=== PATIENT | male | born 1930 | race Caucasian/White ===

== ENCOUNTER 2017-11-02 16:07 | Emergency (ER) | payer OTHER ==
--- NOTE | 2017-11-02 18:10 | ER ---
Nurse's Notes [facility] Name: Cristi Kirk Sr Age: 87 yrs Sex: Male : 1930 Arrival Date: 11/02/2017 Time: 16:08 Bed 27 Private MD: Juan Pablo Hardy E Diagnosis: Unspecified urinary incontinence Presentation: 11/02 16:20 Presenting complaint: Child states: "He is having trouble controlling his bladder for a lk1 month or two now. He's been in and out of here with it and I want to know why.". Presenting complaint:. Transition of care: patient was not received from another setting of care. Onset of symptoms was September 02, 2017. Risk Assessment: Do you want to hurt yourself or someone else? Patient reports no desire to harm self or others. Initial Sepsis Screen: Does the patient meet any 2 criteria? No. Patient's initial sepsis screen is negative. Does the patient have a suspected source of infection? No. Patient's initial sepsis screen is negative. Care prior to arrival: None. 16:20 Method Of Arrival: Wheelchair lk1 16:20 Acuity: RAKESH 4 lk1 Historical: - Allergies: 16:22 No Known Allergies; lk1 - PMHx: 16:22 None; lk1 - PSHx: 16:22 Appendectomy; lk1 - Immunization history:: Adult Immunizations up to date. - Social history:: Smoking status: Patient/guardian denies using tobacco. - Ebola Screening: : No symptoms or risks identified at this time. Screenin:02 Abuse screen: Denies threats or abuse. Nutritional screening: No deficits noted. mb3 Tuberculosis screening: No symptoms or risk factors identified. Fall Risk Fall in past 12 months (25 points). Secondary diagnosis (15 points) No IV (0 pts). Ambulatory Aid- Crutches/Cane/Walker (15 pts). Gait- Impaired (20 pts.). Mental Status- Oriented to own ability (0 pts). Total Stokes Fall Scale indicates High Risk Score (45 or more points). Fall prevention measures have been instituted. Side Rails Up X 2 Placed Close to Nursing Station Frequent Obs/Assessments Occuring Family Present and informed to notify staff if the need to leave the bedside As available patient and family educated on Fall Prevention Program and Strategies. Assessment: 18:01 General: Appears in no apparent distress. comfortable, unkempt, Behavior is calm, mb3 cooperative, appropriate for age. Pain: Denies pain. Neuro: Level of Consciousness is awake, alert, obeys commands. Cardiovascular: No deficits noted. Respiratory: No deficits noted. GI: No deficits noted. : Urine is clear. 18:03 Reassessment: bladder scan done after pt urinated, no urine detected. mb3 Vital Signs: 16:22 BP 111 / 63; Pulse 79; Resp 16; Temp 98.3(TE); Pulse Ox 95% on R/A; Weight 75.3 kg (R); lk1 Height 5 ft. 9 in. (175.26 cm) (R); Pain 0/10; 18:08 BP 114 / 53; Pulse 70; Resp 18; Pulse Ox 98% on R/A; mb3 16:22 Body Mass Index 24.51 (75.30 kg, 175.26 cm) lk1 ED Course: 16:08 Patient arrived in ED. as 16:08 Juan Pablo Hardy MD is Private Physician. as 16:21 Triage completed. lk1 16:24 Arm band placed on right wrist. lk1 16:26 Amol Nye MD is Attending Physician. 16:28 Terry Dickinson, ANTHONY is Primary Nurse. mb3 18:03 Patient has correct armband on for positive identification. Call light in reach. Side mb3 rails up X 1. 18:03 Urine collected: clean catch specimen, clear, opal colored. tt1 18:09 Clifford Reese MD is Referral Physician. 18:17 No provider procedures requiring assistance completed. Patient did not have IV access mb3 during this emergency room visit. Administered Medications: No medications were administered Outcome: 18:10 Discharge ordered by . 18:17 Discharged to home via wheelchair, with family. mb3 18:17 Condition: stable 18:17 Discharge instructions given to patient, family, Instructed on discharge instructions, follow up and referral plans. Demonstrated understanding of instructions, follow-up care. 18:22 Patient left the ED. mb3 Signatures: Renee Castaneda Tracy tt1 Brittany Coffey RN RN lk Amol Nye MD MD Terry Dickinson RN RN mb3
--- NOTE | 2017-11-02 18:10 | EDPHYS ---
Physician Documentation [facility] Name: Cristi Kirk Sr Age: 87 yrs Sex: Male : 1930 Arrival Date: 11/02/2017 Time: 16:08 Bed 27 Private MD: Juan Pablo Hardy E ED Physician Amol Nye HPI: 11/02 18:06 This 87 yrs old Male presents to ER via Wheelchair with complaints of Urinary gs Incontinence,. 18:07 The patient presents with urinary symptoms, urinary frequency, incontinence of urine. gs Onset: The symptoms/episode began/occurred 2 week(s) ago, and became persistent. Modifying factors: The symptoms are alleviated by nothing, the symptoms are aggravated by nothing. Severity of symptoms: At their worst the symptoms were moderate, in the emergency department the symptoms are unchanged. Unable to obtain HPI due to baseline dementia. Historical: - Allergies: 16:22 No Known Allergies; lk1 - PMHx: 16:22 None; lk1 - PSHx: 16:22 Appendectomy; lk1 - Immunization history:: Adult Immunizations up to date. - Social history:: Smoking status: Patient/guardian denies using tobacco. - Ebola Screening: : No symptoms or risks identified at this time. ROS: 18:07 All other systems are negative. gs Exam: 18:07 ENT: Nares patent. No nasal discharge, no septal abnormalities noted. Tympanic gs membranes are normal and external auditory canals are clear. Oropharynx with no redness, swelling, or masses, exudates, or evidence of obstruction, uvula midline. Mucous membranes moist. Neck: Trachea midline, no thyromegaly or masses palpated, and no cervical lymphadenopathy. Supple, full range of motion without nuchal rigidity, or vertebral point tenderness. No Meningismus. Cardiovascular: Regular rate and rhythm with a normal S1 and S2. No gallops, murmurs, or rubs. Normal PMI, no JVD. No pulse deficits. Respiratory: Lungs have equal breath sounds bilaterally, clear to auscultation and percussion. No rales, rhonchi or wheezes noted. No increased work of breathing, no retractions or nasal flaring. Abdomen/GI: Soft, non-tender, with normal bowel sounds. No distension or tympany. No guarding or rebound. No evidence of tenderness throughout. Back: No spinal tenderness. No costovertebral tenderness. Full range of motion. Skin: Warm, dry with normal turgor. Normal color with no rashes, no lesions, and no evidence of cellulitis. MS/ Extremity: Pulses equal, no cyanosis. Neurovascular intact. Full, normal range of motion. 18:07 Constitutional: The patient appears alert, awake. 18:07 Neuro: Exam negative for acute changes, Motor: moves all fours, Sensation: no obvious gross deficits. Vital Signs: 16:22 BP 111 / 63; Pulse 79; Resp 16; Temp 98.3(TE); Pulse Ox 95% on R/A; Weight 75.3 kg (R); lk1 Height 5 ft. 9 in. (175.26 cm) (R); Pain 0/10; 18:08 BP 114 / 53; Pulse 70; Resp 18; Pulse Ox 98% on R/A; mb3 16:22 Body Mass Index 24.51 (75.30 kg, 175.26 cm) lk1 MDM: 16:35 Patient medically screened. 18:07 Differential diagnosis: UTI, urinary retention. Data reviewed: vital signs, nurses notes. Response to treatment: There is no appreciated change of the patient's symptoms at this time, and as a result, I will discharge patient. 11/02 16:36 Order name: Urine Microscopic Only 11/02 18:03 Order name: Urine Dipstick--Ancillary (enter results) em1 11/02 16:36 Order name: Urine Dipstick-Ancillary (obtain specimen); Complete Time: 18:01 11/02 16:36 Order name: Misc. Order: post void bladder scan 11/02 18:04 Order name: Urine Dipstick-Ancillary EDMS Administered Medications: No medications were administered Disposition: 11/02/17 18:10 Discharged to Home. Impression: Unspecified urinary incontinence. - Condition is Stable. - Discharge Instructions: Urinary Incontinence. - Medication Reconciliation Form, Thank You Letter, Antibiotic Education, Prescription Opioid Use form. - Follow up: Clifford Reese MD; When: 2 - 3 days; Reason: Re-evaluation by your physician. Signatures: Dispatcher [employer] EDMS Brittany Coffey RN RN lk1 Amol Nye MD MD Terry Dickinson RN RN mb3 Corrections: (The following items were deleted from the chart) 18:22 18:10 11/02/2017 18:10 Discharged to Home. Impression: Unspecified urinary mb3 incontinence. Condition is Stable. Forms are Medication Reconciliation Form, Thank You Letter, Antibiotic Education, Prescription Opioid Use. Follow up: Clifford Reese; When: 2 - 3 days; Reason: Re-evaluation by your physician. gs
[2017-11-02 18:17] LABS: Urine Bacteria <20 /HPF (NONE SEEN); Urine Culture Reflex Order NOT NEEDED; Urine Mucus 1+ /HPF (NONE SEEN); Urine RBC <5 /HPF (NONE SEEN)
[2017-11-02 18:25] VITALS: TEMP 98.3
[2017-11-02 18:26] VITALS: BP 114/53; O2SAT 98
[2017-11-02 20:05] LABS: Urine Blood TRACE (NEG); Urine Glucose NEGATIVE (NEG); Urine Protein NEGATIVE (NEG); Urine Specific Gravity 1.025 (1.005-1.030); Urine pH 5.5 (5.0-7.0)
== END 2017-11-02 18:22 | disposition home or self-care (01) ==
LOC: ER 16:07
DX: R32 Unspecified urinary incontinence (principal); F03.90 Unspecified dementia, unspecified severity, without behavioral disturbance, psychotic disturbance, mood disturbance, and anxiety
CPT/HCPCS: 81003; 81015; 99283

== ENCOUNTER 2018-06-01 19:04 | Emergency (ER) | payer OTHER ==
--- NOTE | 2018-06-01 20:19 | RAD REPORT ---
EXAM DESCRIPTION: RAD - Chest Single View - 06/01/2018 8:01 pm CLINICAL HISTORY: Cough and congestion COMPARISON: July 2013 TECHNIQUE: AP portable chest image was obtained 1947 hours . FINDINGS: No peripheral mass or consolidation. Interstitial markings are prominent but not substanti ally different from comparison. No new or progressive mediastinal or hilar abnormality. Heart and vas culature are normal. No measurable pleural effusion and no pneumothorax. No acute bony abnormality se en. No acute aortic findings suspected. IMPRESSION: Chronic interstitial lung disease not substantially different from comparison. Severity of disease could mask early interstitial edema or infiltrate.
[2018-06-01 20:20] LABS: Absolute Lymphocytes (CBC) 3.6 K/uL (0.7-4.9); Absolute Monocytes 0.6 K/uL (0.1-1.3); Absolute Neutrophil 3.6 K/uL (1.8-8.0); Basophils % 0.9 % (0-1.3); Eosinophils % 1.9 % (0-4.4); Lymphocytes % 44.9 % (15.3-44.8); MPV 8.2 fL (7.6-11.3); Monocytes % 7.5 % (3.3-12.3); RBC Red Blood Cell Count 4.99 M/uL (4.33-5.43)
[2018-06-01 20:32] LABS: ALT/SGPT 25 U/L (12-78); AST/SGOT 23 U/L (15-37); Albumin 3.6 g/dL (3.4-5.0); Alkaline Phosphatase 83 U/L (45-117); BUN Blood Urea Nitrogen 14 mg/dL (7-18); Bicarbonate 30 mmol/L (21-32); Bilirubin Direct 0.2 mg/dL (0-0.2); Bilirubin Total 0.7 mg/dL (0.2-1.0); Glucose Level 96 mg/dL (74-106); Magnesium 2.4 mg/dL (1.8-2.4); NT PRO-BNP 97 pg/mL (<450); Potassium 3.7 mmol/L (3.5-5.1); Protein, Total 7.5 g/dL (6.4-8.2); Sodium Level 141 mmol/L (136-145); Troponin (Emerg Dept Use Only) < 0.02 ng/mL (0.0-0.045)
--- NOTE | 2018-06-01 21:38 | EDPHYS ---
Physician Documentation [facility] Name: Cristi Kirk Sr Age: 87 yrs Sex: Male : 1930 Arrival Date: 06/01/2018 Time: 19:07 Bed 18 Private MD: ED Physician Kaz Burgos HPI: 06/01 19:32 This 87 yrs old Male presents to ER via EMS with complaints of cough. tw4 19:32 The patient or guardian reports cough. Onset: The symptoms/episode began/occurred tw4 today. Severity of symptoms: At their worst the symptoms were moderate, in the emergency department the symptoms are unchanged. The patient has not experienced similar symptoms in the past. Historical: - Allergies: 19:10 No Known Allergies; jd3 - Home Meds: 19:10 None [Active]; jd3 - PMHx: 19:10 None; jd3 - PSHx: 19:10 Appendectomy; colon; jd3 - Immunization history:: Adult Immunizations up to date. - Social history:: Smoking status: Patient/guardian denies using tobacco. - Ebola Screening: : Patient negative for fever greater than or equal to 101.5 degrees Fahrenheit, and additional compatible Ebola Virus Disease symptoms. ROS: 19:32 Constitutional: Negative for fever, chills, and weight loss, Eyes: Negative for injury, tw4 pain, redness, and discharge, Cardiovascular: Negative for chest pain, palpitations, and edema, Abdomen/GI: Negative for abdominal pain, nausea, vomiting, diarrhea, and constipation, Back: Negative for injury and pain, MS/Extremity: Negative for injury and deformity. 19:32 Respiratory: Positive for cough, "sounds productive", Negative for dyspnea on exertion, hemoptysis, orthopnea, pleurisy, shortness of breath. Exam: 19:32 Constitutional: This is a well developed, well nourished patient who is awake, alert, tw4 and in no acute distress. Head/Face: Normocephalic, atraumatic. Chest/axilla: Normal chest wall appearance and motion. Nontender with no deformity. No lesions are appreciated. Cardiovascular: Regular rate and rhythm with a normal S1 and S2. No gallops, murmurs, or rubs. Normal PMI, no JVD. No pulse deficits. 19:32 Abdomen/GI: Soft, non-tender, with normal bowel sounds. No distension or tympany. No guarding or rebound. No evidence of tenderness throughout. Back: No spinal tenderness. No costovertebral tenderness. Full range of motion. MS/ Extremity: Pulses equal, no cyanosis. Neurovascular intact. Full, normal range of motion. Neuro: Awake and alert, GCS 15, oriented to person, place, time, and situation. Cranial nerves II-XII grossly intact. Motor strength 5/5 in all extremities. Sensory grossly intact. Cerebellar exam normal. Normal gait. 19:32 Respiratory: the patient does not display signs of respiratory distress, Respirations: normal. 21:35 ECG was reviewed by the Attending Physician. tw4 Vital Signs: 19:10 BP 132 / 71; Pulse 75; Resp 17 S; Temp 98.8(O); Pulse Ox 97% on R/A; Weight 86.18 kg jd3 (R); Height 5 ft. 9 in. (175.26 cm) (R); Pain 0/10; 20:34 BP 118 / 71; Pulse 74; Resp 17 S; Pulse Ox 96% on R/A; jd3 21:37 BP 136 / 73; Pulse 72; Resp 17 S; Pulse Ox 97% on R/A; jd3 19:10 Body Mass Index 28.06 (86.18 kg, 175.26 cm) jd3 MDM: 19:19 Patient medically screened. tw4 21:35 Differential Diagnosis: Bronchitis Influenza Upper Respiratory Infection. Data tw4 reviewed: vital signs, nurses notes. Data interpreted: Pulse oximetry: Interpretation: normal. Test interpretation: by ED physician or midlevel provider: ECG. Counseling: I had a detailed discussion with the patient and/or guardian regarding: the historical points, exam findings, and any diagnostic results supporting the discharge/admit diagnosis, lab results, the need to transfer to another facility. Special discussion: I discussed with the patient/guardian in detail that at this point there is no indication for admission to the hospital. It is understood, however, that if the symptoms persist or worsen the patient needs to return immediately for re-evaluation. 06/01 19:28 Order name: Flu jd3 06/01 19:33 Order name: Basic Metabolic Panel; Complete Time: 21:33 tw4 06/01 21:33 Interpretation: Within normal limits. tw4 06/01 19:33 Order name: CBC with Diff; Complete Time: 21:34 06/01 21:34 Interpretation: Normal except: LYM% 44.9. 06/01 19:33 Order name: LFT's; Complete Time: 21:34 06/01 21:34 Interpretation: Normal except: GLOB 3.9; A/G 0.9. 06/01 19:33 Order name: Magnesium; Complete Time: 21:33 06/01 21:33 Interpretation: Within normal limits: MG 2.4. 06/01 19:33 Order name: NT PRO-BNP; Complete Time: 21:33 06/01 21:33 Interpretation: Within normal limits: NT PRO-BNP 97. 06/01 19:28 Order name: Chest Single View XRAY jd3 06/01 19:33 Order name: PT-INR; Complete Time: 21:33 06/01 21:33 Interpretation: Within normal limits: PT 11.8. 06/01 19:33 Order name: Troponin (emerg Dept Use Only); Complete Time: 21:33 06/01 21:33 Interpretation: TROPED < 0.02. 06/01 19:33 Order name: EKG; Complete Time: 19:34 06/01 19:33 Order name: Cardiac monitoring; Complete Time: 20:04 06/01 19:33 Order name: EKG - Nurse/Tech; Complete Time: 20:04 06/01 19:33 Order name: IV Saline Lock; Complete Time: 20:04 06/01 19:33 Order name: Labs collected and sent; Complete Time: 20:04 06/01 19:33 Order name: O2 Per Protocol; Complete Time: 19:37 06/01 19:33 Order name: O2 Sat Monitoring; Complete Time: 19:37 EC:35 Rate is 73 beats/min. Rhythm is regular, Sinus arrythmia. QRS [place] is Normal. [place] tw4 interval is normal. QRS interval is normal. QT interval is normal. No Q waves. T waves are Normal. No ST changes noted. Clinical impression: Normal ECG. Interpreted by me. Reviewed by me. Administered Medications: No medications were administered Disposition: 06/01/18 21:37 Discharged to Home. Impression: Bronchitis, not specified as acute or chronic. - Condition is Stable. - Discharge Instructions: Acute Bronchitis, Adult. - Prescriptions for Tessalon Perles 100 mg Oral Capsule - take 1 capsule by ORAL route every 8 hours As needed; 15 capsule. Zithromax Z- Rashaun 250 mg Oral Tablet - take 1 tablet by ORAL route as directed for 5 days Day 1 - take two (2) tablets one time. Day 2, 3, 4 , 5 take one (1) tablet once daily.; 6 tablet. Albuterol Sulfate 90 mcg/actuation - inhale 1-2 puff by INHALATION route every 4-6 hours; 1 Inhaler. - Medication Reconciliation Form, Thank You Letter, Antibiotic Education, Prescription Opioid Use form. - Follow up: Private Physician; When: Upon discharge from the Emergency Department; Reason: If symptoms return, Recheck today's complaints, Continuance of care. - Problem is new. - Symptoms have improved. Signatures: Dispatcher [employer] Caleb Rendon RN RN jd3 Kaz Burgos MD MD tw4 Corrections: (The following items were deleted from the chart) 21:57 21:37 06/01/2018 21:37 Discharged to Home. Impression: Bronchitis, not specified as jd3 acute or chronic. Condition is Stable. Forms are Medication Reconciliation Form, Thank You Letter, Antibiotic Education, Prescription Opioid Use. Follow up: Private Physician; When: Upon discharge from the Emergency Department; Reason: If symptoms return, Recheck today's complaints, Continuance of care. Problem is new. Symptoms have improved. tw4
--- NOTE | 2018-06-01 21:38 | ER ---
Nurse's Notes [facility] Name: Cristi Kirk Sr Age: 87 yrs Sex: Male : 1930 Arrival Date: 06/01/2018 Time: 19:07 Bed 18 Private MD: Diagnosis: Bronchitis, not specified as acute or chronic Presentation: 06/01 19:07 Presenting complaint: EMS states: "he says he is having flu like symptoms with a cough jd3 and congestion. reports his legs are aching as well.". Transition of care: patient was not received from another setting of care. Onset of symptoms was June 01, 2018. Risk Assessment: Do you want to hurt yourself or someone else? Patient reports no desire to harm self or others. Initial Sepsis Screen: Does the patient meet any 2 criteria? No. Patient's initial sepsis screen is negative. Does the patient have a suspected source of infection? No. Patient's initial sepsis screen is negative. Care prior to arrival: None. 19:07 Method Of Arrival: EMS: [facility] jd3 19:07 Acuity: RAKESH 4 jd3 Historical: - Allergies: 19:10 No Known Allergies; jd3 - Home Meds: 19:10 None [Active]; jd3 - PMHx: 19:10 None; jd3 - PSHx: 19:10 Appendectomy; colon; jd3 - Immunization history:: Adult Immunizations up to date. - Social history:: Smoking status: Patient/guardian denies using tobacco. - Ebola Screening: : Patient negative for fever greater than or equal to 101.5 degrees Fahrenheit, and additional compatible Ebola Virus Disease symptoms. Screenin:12 Abuse screen: Denies threats or abuse. Nutritional screening: No deficits noted. jd3 Tuberculosis screening: No symptoms or risk factors identified. Fall Risk Fall in past 12 months (25 points). Ambulatory Aid- None/Bed Rest/Nurse Assist (0 pts). Gait- Normal/Bed Rest/Wheelchair (0 pts) Mental Status- Oriented to own ability (0 pts). Total Stokes Fall Scale indicates Low Risk Score (25-44 pts). Fall prevention measures have been instituted. Side Rails Up X 2 Placed close to Nursing Station Frequent Obs/Assesments occuring Family Present and informed to notify staff if they need to leave bedside. Assessment: 19:11 General: Appears in no apparent distress. uncomfortable, Behavior is calm, cooperative, jd3 appropriate for age. Pain: Complains of pain in right leg and left leg Pain currently is 0 out of 10 on a pain scale. Quality of pain is described as aching. Neuro: Level of Consciousness is awake, alert, obeys commands, Oriented to person, place, time, situation. Cardiovascular: Capillary refill < 3 seconds Patient's skin is warm and dry. Respiratory: Reports cough that is productive, coughing up "yellow gunk" Airway is patent Respiratory effort is even, unlabored, Respiratory pattern is regular, symmetrical. GI: No signs and/or symptoms were reported involving the gastrointestinal system. : No signs and/or symptoms were reported regarding the genitourinary system. EENT: No signs and/or symptoms were reported regarding the EENT system. Derm: Skin is intact, Skin is dry, Skin is normal, Skin temperature is warm. Musculoskeletal: Circulation, motion, and sensation intact. Range of motion: intact in all extremities. 19:37 Neuro: Reports dizziness. jd3 20:34 Reassessment: Patient appears in no apparent distress at this time. No changes from jd3 previously documented assessment. Patient and/or family updated on plan of care and expected duration. Pain level reassessed. Patient is alert, oriented x 3, equal unlabored respirations, skin warm/dry/pink. 21:38 Reassessment: Patient appears in no apparent distress at this time. Patient and/or d3 family updated on plan of care and expected duration. Pain level reassessed. Patient is alert, oriented x 3, equal unlabored respirations, skin warm/dry/pink. Patient denies pain at this time. 21:56 Reassessment: Patient appears in no apparent distress at this time. No changes from jd3 previously documented assessment. Patient and/or family updated on plan of care and expected duration. Pain level reassessed. Patient is alert, oriented x 3, equal unlabored respirations, skin warm/dry/pink. Vital Signs: 19:10 BP 132 / 71; Pulse 75; Resp 17 S; Temp 98.8(O); Pulse Ox 97% on R/A; Weight 86.18 kg jd3 (R); Height 5 ft. 9 in. (175.26 cm) (R); Pain 0/10; 20:34 BP 118 / 71; Pulse 74; Resp 17 S; Pulse Ox 96% on R/A; jd3 21:37 BP 136 / 73; Pulse 72; Resp 17 S; Pulse Ox 97% on R/A; jd3 19:10 Body Mass Index 28.06 (86.18 kg, 175.26 cm) jd3 ED Course: 19:07 Patient arrived in ED. jd3 19:09 Triage completed. jd3 19:11 Arm band placed on. jd3 19:13 Patient has correct armband on for positive identification. Bed in low position. Call jd3 light in reach. Side rails up X 1. 19:16 Trena Webb MD is Attending Physician. ma2 19:19 Attending Physician role handed off by Trena Webb MD tw4 19:19 Kaz Burgos MD is Attending Physician. tw4 19:20 Caleb Apodaca RN is Primary Nurse. jd3 19:50 X-ray completed. Portable x-ray completed in exam room. Patient tolerated procedure jb2 well. 20:00 Inserted saline lock: 22 gauge in right antecubital area, using aseptic technique. jd3 Blood collected. placed by [employer]. 20:06 Chest Single View XRAY In Process Unspecified. EDMS 21:56 No provider procedures requiring assistance completed. IV discontinued, intact, jd3 bleeding controlled, No redness/swelling at site. Pressure dressing applied. Administered Medications: No medications were administered Outcome: 21:37 Discharge ordered by . tw4 21:56 Discharged to home via wheelchair, with family. jd3 21:56 Condition: stable 21:56 Discharge instructions given to patient, family, Instructed on discharge instructions, follow up and referral plans. medication usage, Demonstrated understanding of instructions, follow-up care, medications, Prescriptions given X 3. 21:57 Patient left the ED. jd3 Signatures: Dispatcher [employer] EDMS Chekoeldon Judson jb2 Caleb Apodaca RN RN Trena Pink MD MD mi2 Kaz Burgos MD MD tw4 Corrections: (The following items were deleted from the chart) 19:22 19:07 Acuity: RAKESH 3 jd3 jd3 19:37 19:13 Patient has correct armband on for positive identification. Bed in low position. jd3 Call light in reach. Side rails up X 1. jd3 19:38 19:12 Fall Risk Ambulatory Aid- None/Bed Rest/Nurse Assist (0 pts). Gait- Normal/Bed jd3 Rest/Wheelchair (0 pts) Mental Status- Oriented to own ability (0 pts). Total Stokes Fall Scale indicates No Risk (0-24 pts). jd3
[2018-06-02 01:36] VITALS: BP 132/71; TEMP 98.8; O2SAT 97
--- NOTE | 2018-06-02 17:11 | EKG ---
Test Date: 2018-06-01 Test Time: 19:49:31 Certified Pathology Assistant: [facility] MEASUREMENT RESULTS: Intervals: Rate: 73 SC: 146 QRSD: 90 QT: 392 QTc: 431 Coy: P: 74 SC: 146 QRS: 38 T: 71 INTERPRETIVE STATEMENTS: Normal sinus rhythm with sinus arrhythmia Normal ECG Compared to ECG 07/03/2017 13:02:34 No significant changes Electronically Signed On 06-02-18 17:07:22 FINANCIAL REPORTING CONSULTANT by Omar Donaldson
== END 2018-06-01 21:57 | disposition home or self-care (01) ==
LOC: ER 19:04
DX: J40 Bronchitis, not specified as acute or chronic (principal)
CPT/HCPCS: 36415; 71045; 80048; 80076; 83735; 83880; 84484; 85025; 85610; 87804; 93005; 99284

== ENCOUNTER 2018-12-23 22:38 | Inpatient (IN) | payer OTHER ==
[2018-12-24 00:10] LABS: Basophils % 0.4 % (0-1.3); Hematocrit 39.5 % (39.6-49.0); Lymphocytes % 8.7 % (15.3-44.8); MPV 8.1 fL (7.6-11.3); RBC Red Blood Cell Count 4.67 M/uL (4.33-5.43)
[2018-12-24 00:16] LABS: Potassium 3.6 mmol/L (3.5-5.1)
[2018-12-24] MEDS ORDERED: CEFTRIAXONE/SWI 1gm 1 GM/10 ML SYR ONE (00:27)
[2018-12-24 00:30] LABS: Urine Blood 2+ (NEG); Urine Glucose TRACE (NEG); Urine Protein 2+ (NEG); Urine Specific Gravity 1.025 (1.005-1.030); Urine pH 5.5 (5.0-7.0)
[2018-12-24 00:41] LABS: Urine Bacteria >50 /HPF (NONE SEEN); Urine Culture Reflex Order REFLEXED; Urine Mucus HEAVY /HPF (NONE SEEN); Urine RBC >50 /HPF (NONE SEEN)
[2018-12-24 00:46] LABS: Blood Morphology Comment NOT SEEN (NOT SEEN); Platelet Estimate ADEQ
--- NOTE | 2018-12-24 01:15 | ER ---
Nurse's Notes [facility] Name: Cristi Kirk Sr Age: 88 yrs Sex: Male : 1930 Arrival Date: 12/23/2018 Time: 22:40 Bed 8 Private MD: Diagnosis: Urinary tract infection, site not specified;Altered mental status, unspecified Presentation: 12/23 22:41 Presenting complaint: Patient states: blood in urine with painful urination. EMS stated ak1 pt daughter is on the way. pt lives home alone. pt denies medical hx, denies taking medications. Transition of care: patient was not received from another setting of care. Onset of symptoms was December 23, 2018. Risk Assessment: Do you want to hurt yourself or someone else? Patient reports no desire to harm self or others. Initial Sepsis Screen: Does the patient meet any 2 criteria? No. Patient's initial sepsis screen is negative. Does the patient have a suspected source of infection? No. Patient's initial sepsis screen is negative. Care prior to arrival: None. 22:41 Method Of Arrival: EMS: [facility] ak 22:41 Acuity: RAKESH 4 ak1 Triage Assessment: 22:43 General: Appears in no apparent distress. comfortable, well groomed, Behavior is calm, ak1 cooperative. Pain: Denies pain. EENT: No signs and/or symptoms were reported regarding the EENT system. Neuro: Level of Consciousness is awake, alert, obeys commands, Oriented to person, place, time, situation, Hydraulics Teacher are equal bilaterally Moves all extremities. Speech is normal. Cardiovascular: No deficits noted. Respiratory: Airway is patent Respiratory effort is even, unlabored. GI: No signs and/or symptoms were reported involving the gastrointestinal system. : Reports pain with urination, blood in urine today. Derm: No signs and/or symptoms reported regarding the dermatologic system. Musculoskeletal: No signs and/or symptoms reported regarding the musculoskeletal system. Historical: - Allergies: :43 No Known Allergies; ak1 - Home Meds: :43 None [Active]; ak1 - PMHx: 22:43 Kidney stones; UTI; ak1 - PSHx: 22:43 Appendectomy; colon; ak1 - Immunization history:: Adult Immunizations unknown. - Social history:: Smoking status: Patient/guardian denies using tobacco. - Ebola Screening: : No symptoms or risks identified at this time. Screenin:44 Abuse screen: Denies threats or abuse. Denies injuries from another. Nutritional ak1 screening: No deficits noted. Tuberculosis screening: No symptoms or risk factors identified. Fall Risk None identified. Assessment: 23:10 Reassessment: Patient appears in no apparent distress at this time. Patient and/or ak1 family updated on plan of care and expected duration. Pain level reassessed. pt appears to be sleeping, pt woken to given urine sample. 12/24 00:01 Reassessment: Patient appears in no apparent distress at this time. No changes from ak1 previously documented assessment. Patient and/or family updated on plan of care and expected duration. Pain level reassessed. Patient is alert, oriented x 3, equal unlabored respirations, skin warm/dry/pink. 01:44 Reassessment: Patient appears in no apparent distress at this time. No changes from ak1 previously documented assessment. Patient and/or family updated on plan of care and expected duration. Pain level reassessed. Patient is alert, oriented x 3, equal unlabored respirations, skin warm/dry/pink. daughter was at bedside and updated that pt is romina admitted. Patient states feeling better. pt appears to be sleeping with eyes closed, resp even and unlabored. . Vital Signs: 12/23 22:40 BP 107 / 54; Pulse 95; Resp 20; Temp 98.7; Pulse Ox 98% ; Weight 90.72 kg (R); Height 5 ak1 ft. 4 in. (162.56 cm) (R); Pain 0/10; 12/24 01:42 BP 114 / 54; Pulse 86; Resp 16; Temp 98.6(TE); Pulse Ox 98% ; ak1 12/23 22:40 Body Mass Index 34.33 (90.72 kg, 162.56 cm) ak1 ED Course: 12/23 22:40 Patient arrived in ED. ak1 22:40 Arm band placed on Patient placed in an exam room, on a stretcher, on pulse oximetry, ak1 Patient notified of wait time. 22:42 Triage completed. ak1 22:44 Patient has correct armband on for positive identification. Bed in low position. Call ak1 light in reach. Side rails up X2. Pulse ox on. NIBP on. 23:10 Melissa Pavon, RN is Primary Nurse. ak1 23:32 Ruslan Boykin PA is PHCP. cp 23:32 Rick Jack MD is Attending Physician. cp 23:59 Urine Microscopic Only Sent. ak1 23:59 Procalcitonin Sent. ak1 23:59 BMP Sent. ak1 23:59 CBC with Diff Sent. ak1 12/24 00:01 Initial lab(s) drawn, by ED staff, sent to lab. Urine collected: clean catch specimen, ak1 tea colored, blood tinged, 30mL in bladder for bladder scan. Inserted saline lock: 20 gauge in left antecubital area, using aseptic technique. ,using aseptic technique. placed by Armando Blair RN Blood collected. 00:57 CT completed. Patient tolerated procedure well. Patient moved to CT via stretcher. Patient moved back from CT. 01:05 Pro Tripp is Hospitalizing Provider. cp 01:45 Patient admitted, IV remains in place. ak1 01:45 No provider procedures requiring assistance completed. ak1 02:03 CT Stone Protocol In Process Unspecified. EDMS Administered Medications: 00:32 Drug: Rocephin 1 grams Route: IV; Rate: bolus; Site: left antecubital; ak1 01:21 Follow up: IV Status: Completed infusion ak1 Outcome: 01:06 Decision to Hospitalize by Provider. cp 02:38 Admitted to Med/surg accompanied by carlin, via stretcher, room 229, with chart, Report ak1 called to Desiree CRUZ for room 229. 02:38 Condition: good 02:38 Instructed on the need for admit. 03:29 Patient left the ED. ak1 Signatures: Dispatcher [employer] EDMS Alexis Camarillo Melissa Pavon, RN RN ak1 Ruslan Boykin PA PA cp
--- NOTE | 2018-12-24 01:17 | EDPHYS ---
Physician Documentation [facility] Name: Cristi Kirk Sr Age: 88 yrs Sex: Male : 1930 Arrival Date: 12/23/2018 Time: 22:40 Bed 8 Private MD: ED Physician Rick Jack HPI: 12/23 23:45 This 88 yrs old Male presents to ER via EMS with complaints of hematuria, cp painful urination. 23:45 The patient presents with urinary symptoms, dysuria, hematuria. cp 23:45 Onset: The symptoms/episode began/occurred at an unknown time. Associated signs and cp symptoms: Pertinent positives: dysuria, hematuria, Pertinent negatives: abdominal pain, constipation, diarrhea, fever, vomiting. Severity of symptoms: in the emergency department the symptoms are unchanged, despite home interventions. Historical: - Allergies: 22:43 No Known Allergies; ak1 - Home Meds: 22:43 None [Active]; ak1 - PMHx: 22:43 Kidney stones; UTI; ak1 - PSHx: 22:43 Appendectomy; colon; ak1 - Immunization history:: Adult Immunizations unknown. - Social history:: Smoking status: Patient/guardian denies using tobacco. - Ebola Screening: : No symptoms or risks identified at this time. ROS: 23:50 Constitutional: Negative for fever, poor PO intake. cp 23:50 Eyes: Negative for injury, pain, redness, and discharge. cp 23:50 ENT: Negative for drainage from ear(s), ear pain, sore throat, difficulty swallowing, difficulty handling secretions. 23:50 Cardiovascular: Negative for chest pain. 23:50 Respiratory: Negative for cough, shortness of breath, wheezing. 23:50 Abdomen/GI: Negative for abdominal pain, nausea and vomiting, diarrhea, constipation, black/tarry stool, rectal bleeding. 23:50 Back: Negative for pain at rest, pain with movement. 23:50 : Positive for hematuria, burning with urination, Negative for testicular pain 23:50 Skin: Negative for rash. 23:50 Neuro: Positive for altered mental status, Negative for headache, weakness. 23:50 All other systems are negative. Exam: 23:55 Constitutional: The patient appears in no acute distress, alert, awake, non-toxic, well cp developed, well nourished. 23:55 Head/Face: Normocephalic, atraumatic. cp 23:55 Eyes: Periorbital structures: appear normal, Conjunctiva: normal, no exudate, no injection, Sclera: no appreciated abnormality, Lids and lashes: appear normal, bilaterally. 23:55 ENT: External ear(s): are unremarkable, Nose: is normal, Mouth: is normal. 23:55 Chest/axilla: Inspection: normal, Palpation: is normal, no crepitus, no tenderness. 23:55 Cardiovascular: Rate: normal, Rhythm: regular, Edema: is not appreciated, JVD: is not appreciated. 23:55 Respiratory: the patient does not display signs of respiratory distress, Respirations: normal, no use of accessory muscles, no retractions, no splinting, no tachypnea, labored breathing, is not present, Breath sounds: are clear throughout, no decreased breath sounds, no stridor, no wheezing. 23:55 Abdomen/GI: Inspection: abdomen appears normal, Bowel sounds: active, all quadrants, Palpation: abdomen is soft and non-tender, in all quadrants, rebound tenderness, is not appreciated, voluntary guarding, is not appreciated, involuntary guarding, is not appreciated. 23:55 Back: pain, is absent, ROM is normal. 23:55 Skin: no rash present. 23:55 Neuro: Orientation: to person, situation, Motor: moves all fours, strength is normal. Vital Signs: 22:40 BP 107 / 54; Pulse 95; Resp 20; Temp 98.7; Pulse Ox 98% ; Weight 90.72 kg (R); Height 5 ak1 ft. 4 in. (162.56 cm) (R); Pain 0/10; 12/24 01:42 BP 114 / 54; Pulse 86; Resp 16; Temp 98.6(TE); Pulse Ox 98% ; ak1 12/23 22:40 Body Mass Index 34.33 (90.72 kg, 162.56 cm) ak1 MDM: 12/23 23:32 Patient medically screened. cp 12/24 00:53 Data reviewed: vital signs, nurses notes, lab test result(s). Physician consultation: ceci Pro Tripp was called at 00:53, was contacted at 00:53, regarding admission, to the medical/surgical unit. patient's condition, and will see patient in ED, shortly. 12/23 23:38 Order name: Urine Microscopic Only; Complete Time: 00:43 cp 12/24 00:45 Interpretation: Normal except: UWBC >50; URBC >50; UBACT >50. cp 12/23 23:38 Order name: CBC with Diff cp 12/24 00:30 Interpretation: Normal except: WBC 22.8; HGB 13.3; HCT 39.5; JYOTSNA% 80.9; LYM% 8.7; NEUT cp A 18.4. 12/23 23:38 Order name: BMP; Complete Time: 00:29 cp 12/23 23:38 Order name: Procalcitonin; Complete Time: 00:43 cp 12/23 23:55 Order name: Urine Dipstick--Ancillary (enter results); Complete Time: 00:43 ar5 12/24 00:45 Interpretation: Normal except: UKET 2+; UBLD 2+; UPROT 2+; U NIT POSITIVE; UESTR 1+. cp 12/24 01:56 Order name: Urine Culture EDGA 12/24 01:57 Order name: Manual Differential EDMS 12/24 02:21 Order name: Basic Metabolic Panel EDMS 12/24 02:21 Order name: Basic Metabolic Panel EDMS 12/24 02:21 Order name: CBC with Automated Diff EDMS 12/24 02:21 Order name: CBC with Automated Diff EDMS 12/24 02:21 Order name: Magnesium EDMS 12/24 02:21 Order name: Magnesium EDMS 12/24 02:22 Order name: Blood Culture EDMS 12/23 23:38 Order name: Urine Dipstick-Ancillary (obtain specimen); Complete Time: 23:51 cp 12/23 23:38 Order name: Bladder Scanner; Complete Time: 00:02 cp 12/23 23:38 Order name: IV; Complete Time: 23:54 cp 12/24 00:31 Order name: CT Stone Protocol 12/24 02:20 Order name: Heart Healthy EDMS Administered Medications: 00:32 Drug: Rocephin 1 grams Route: IV; Rate: bolus; Site: left antecubital; ak1 01:21 Follow up: IV Status: Completed infusion ak1 Disposition: 05:51 Co-signature as Attending Physician, Rick Jack MD. pkl Disposition: 12/24/18 01:06 Hospitalization ordered by Pro Tripp for Inpatient Admission. Preliminary diagnosis are Urinary tract infection, site not specified, Altered mental status, unspecified. - Bed requested for Telemetry/MedSurg (Inpatient). - Status is Inpatient Admission. ak1 - Condition is Stable. - Problem is new. - Symptoms have improved. UTI on Admission? Yes Signatures: Dispatcher [employer] EDMS Rick Jack MD MD pkl Krenek, Amber, RN RN ak1 Ruslan Boykin PA PA cp Garcia, Cindy, RN RN cg Corrections: (The following items were deleted from the chart) 02:16 01:06 Hospitalization Ordered by Pro Tripp for Inpatient Admission. Preliminary cg diagnosis is Urinary tract infection, site not specified; Altered mental status, unspecified. Bed requested for Telemetry/MedSurg (Inpatient). Status is Inpatient Admission. Condition is Stable. Problem is new. Symptoms have improved. UTI on Admission? Yes. ceci 03:29 02:16 12/24/2018 01:06 Hospitalization Ordered by Pro Tripp for Inpatient ak1 Admission. Preliminary diagnosis is Urinary tract infection, site not specified; Altered mental status, unspecified. Bed requested for Telemetry/MedSurg (Inpatient). Status is Inpatient Admission. Condition is Stable. Problem is new. Symptoms have improved. UTI on Admission? Yes. cg
--- NOTE | 2018-12-24 01:54 | P.HP ---
Certification for Inpatient Patient admitted to: Inpatient With expected LOS: >2 Midnights Practitioner: I am a practitioner with admitting privileges, knowledge of patient current condition, hospital course, and medical plan of care. Services: Services provided to patient in accordance with Admission requirements found in Title 42 Section 412.3 of the Code of Federal Regulations Patient History Date of Service: 12/24/18 Reason for admission: Hematuria and dysuria History of Present Illness: 88-year-old man with a history of COPD/asthma and kidney stones presented to the emergency department with a complaint of hematuria and dysuria. Patient denies any fever or chills or loss of appetite. He also denies any urinary incontinence or hesitancy or back pain. Patient is a poor historian and could not provide much history. In the ED, UA suggested presence of UTI. [place] [address]. He is afebrile and does not meet criteria for sepsis. Patient is admitted for further management of UTI with severe leukocytosis. Allergies No Known Allergies Allergy (Verified 12/24/18 04:05) Home Medications: NK [No Home Meds] 12/24/18 - Past Medical/Surgical History Diabetic: No -: PNA-infant -: hyperlipidemia -: c/o paplpitations -: appy -: colon resection - Family History Family History: Reviewed- Non-Contributory - Social History Alcohol use: No CD- Drugs: No Caffeine use: Yes Review of Systems Other: General: No fever, no malaise, no unintentional weight loss. Eyes: No eye discharge, Respiratory: No cough, no shortness of breath. CVS: No chest pain, no palpitation, no lightheadedness. GI: No abdominal pain, no nausea no vomit, no constipation, no diarrhea. Musculoskeletal: No joint pains, or joint swelling, no gait instability. Neurology: No headache, no asymmetric, weakness, no problem with swallowing. Except as documented, all other systems reviewed and negative. Physical Examination - Physical Exam General: In no apparent distress, Oriented x2 HEENT: Atraumatic, PERRLA, Mucous membr. moist/pink Neck: Supple, 2+ carotid pulse no bruit, JVD not distended Respiratory: Clear to auscultation bilaterally, Normal air movement Cardiovascular: No edema, Normal pulses, Regular rate/rhythm, No murmurs Capillary refill: <2 Seconds Gastrointestinal: Normal bowel sounds, Soft and benign, Non-distended, No tenderness, Other (No costovertebral angle tenderness.) Musculoskeletal: No clubbing, No erythema, No tenderness Integumentary: No rashes, No breakdown Neurological: Normal strength at 5/5 x4 extr, Cranial nerves 3-12 intact, Normal affect Lymphatics: No axilla or inguinal lymphadenopathy - Studies Laboratory Data (last 24 hrs) 12/23/18 23:50: Sodium 136, Potassium 3.6, BUN 16, Creatinine 0.90, Glucose 145 H 12/23/18 23:50: WBC 22.8 H*, Hgb 13.3 L, Hct 39.5 L, Plt Count 233 Assessment and Plan - Problems (Diagnosis) (1) Acute cystitis with hematuria Current Visit: Yes Status: Acute (2) Leukocytosis Current Visit: Yes Status: Acute (3) Chronic obstructive lung disease COPD Current Visit: No Status: Chronic - Plan Admit to [facility] IV hydration with normal saline IV Rocephin Follow urine culture. Obtain blood cultures. CT abdomen ordered to assess for kidney stones. - Advance Directives Does patient have a Living Will: No Does patient have a Durable POA for Healthcare: No - Code Status/Comfort Care Code Status: Full Code
[2018-12-24] MEDS ORDERED: ALBUTEROL 2.5 MG/3 ML NEB SOL NEB PRN (02:01)
[2018-12-24] MEDS ORDERED: ONDANSETRON 4 MG/2 ML VIAL IV PRN (02:01)
[2018-12-24] MEDS ORDERED: ACETAMINOPHEN 500 MG TAB PO PRN (02:01)
[2018-12-24] MEDS: NA CHLORIDE 0.9% 1,000 ML IV SCH ×3 (03:51→22:08)
[2018-12-24 04:11] VITALS: BMI 25.2
[2018-12-24 08:00] LABS: BUN Blood Urea Nitrogen 15 mg/dL (7-18); Bicarbonate 24 mmol/L (21-32); Glucose Level 111 mg/dL (74-106); Magnesium 2.4 mg/dL (1.8-2.4); Potassium 3.6 mmol/L (3.5-5.1); Sodium Level 140 mmol/L (136-145)
--- NOTE | 2018-12-24 10:07 | RAD REPORT ---
EXAM DESCRIPTION: CT - Stone Protocol - 12/24/2018 3:52 am CLINICAL HISTORY: 88 years Male HEMATURIA TECHNIQUE: Contiguous axial images obtained through the abdomen and pelvis without IV contrast. Co javon and sagittal reformatted images provided. This CT exam was performed according to our departmental dose-optimization program, which includes on e or more of the following dose reduction techniques: automated exposure control, adjustment of the m A and/or kV according to patient size, and/or use of iterative reconstruction technique. COMPARISON: No prior exams provided for comparison. FINDINGS: There are no renal, ureteral, or bladder calculi. There is no hydronephrosis or perinephri c stranding on either side. The urinary bladder is collapsed, making it difficult to exclude cystitis. There is moderate enlargem ent of the prostate. Prior partial right colectomy. No visualized bowel inflammation, obstruction, pneumatosis, free intra peritoneal air, abscess, or ascites Minimal bibasilar atelectasis. Pancreatic atrophy without focal lesion or inflammation on this noncontrast study. The liver, biliary tree, gallbladder, spleen, and adrenal glands are normal. Atherosclerosis of the abdominal aorta without aneurysm or evidence of acute retroperitoneal hemorrha ge. Lumbar scoliosis with moderate chronic multilevel degenerative changes. No acute fracture or aggressi ve osseous lesion. IMPRESSION: Incomplete distention of the urinary bladder with moderate enlargement of the prostate. Cannot exclude cystitis, correlate with urinalysis. No other acute findings in the abdomen or pelvis. Normal kidneys and ureters. Electronically signed by: Medina Naik MD 12/24/2018 1:19 AM CDT Due to temporary technical issues with the PACS/Fluency reporting system, reports are being signed by the in house radiologist as a courtesy to ensure prompt reporting. The interpreting radiologist is f ully responsible for the content of the report.
[2018-12-24] MEDS ORDERED: POTASSIUM 25 MEQ EFFERV TAB PO ONE (10:35)
[2018-12-24] MEDS ORDERED: CEFTRIAXONE 1 GM/NS 50 ML 1 GM/50 ML BAG IV SCH (12:00)
[2018-12-24] MEDS: CEFTRIAXONE/SWI 1gm 1 GM/10 ML SYR IV SCH (12:00)
--- NOTE | 2018-12-24 12:45 | RAD REPORT ---
EXAM DESCRIPTION: RAD - Chest Single View - 12/24/2018 12:36 pm CLINICAL HISTORY: cough, SOB Chest pain. COMPARISON: Chest Single View dated 06/01/2018; CHEST SINGLE VIEW dated 07/29/2013; CHEST SINGLE VIEW dated 01/14/2013; CHEST PA AND LAT 2 VIEW dated 05/15/2006 FINDINGS: Portable technique limits examination quality. The lungs are mildly emphysematous but grossly clear. The heart is normal in size. No displaced fract ures. IMPRESSION: Mild COPD.
[2018-12-24] MEDS ORDERED: NA CHLORIDE 0.9% 1,000 ML IV ONE (13:43)
--- NOTE | 2018-12-24 14:51 | PN ---
Date of Progress Note: 12/24/2018 Subjective: Patient is seen and examined. Chart reviewed and case discussed with RN. The patient is a poor historian, who is somewhat confused. Medications: List reviewed. Physical Examination: Vital Signs: Temperature 99.8, heart rate 88, blood pressure 138/65, respirations 18, O2 at 97% on room air. General: Awake, alert, oriented x1, elderly male not in any acute distress. CV: S1, S2. Regular rate and rhythm. Peripheral pulses present. Respiratory: Moving air well bilaterally. No wheezing. Gastrointestinal: Abdomen is soft, nontender, nondistended. Positive bowel sounds. Extremities: No clubbing, cyanosis, or edema. Neurologic: Nonfocal. Laboratory Data: Sodium 140, potassium 3.6, chloride 106, CO2 of 24, BUN 15, creatinine 0.81, glucose 111, calcium 8.3, magnesium 2.4. WBC 22.8, H and H 13.3, 39.5. Cultures pending. CT scan of the abdomen and pelvis personally reviewed shows incomplete distention of the urinary bladder with moderate enlargement of the prostate. Cannot exclude cystitis. No other acute findings in the abdomen or pelvis. Normal kidneys and ureter. Assessment And Plan: An 88-year-old male with: 1. Acute cystitis with hematuria. We will continue with IV antibiotics and follow up on culture results. Dr. Reese with Urology has been consulted. 2. Chronic obstructive pulmonary disease, chronic bronchitis. We will continue with nebulizer treatments as needed. 3. Neutrophilic leukocytosis likely secondary to urinary tract infection. We will repeat labs in a.m. 4. DVT prophylaxis, SCDs, no chemical anticoagulation due to hematuria. Consult Urology. Follow up on urine cultures, likely discharge in next 24 to 48 hours. ADDENDUM: Patient flagged for sepsis. Tachypneic, more congestion. Check lactate, CXR. Rule out sepsis. SA/MODL Voice ID: [id number] Report ID: [id number] MTDD
--- NOTE | 2018-12-24 15:52 | CON ---
History Of Present Illness: This 88-year-old male with a history of COPD, asthma and kidney stones, presents to the ER with dysuria and pink hematuria. Happens to have diagnosed with a UTI. His leukocyte count was up to 22,000. He is afebrile. He was admitted for IV antibiotics. He has minimal voiding symptoms at home, but probably could use some tamsulosin. Allergies: NO KNOWN DRUG ALLERGIES. Home Medications: Reviewed. Past Medical History: No diabetes. __ as an , hyperlipidemia, palpitations, appy, colon resection. Family History: Noncontributory. Social History: No alcohol use. Lives at home. Some caffeine use. Review of Systems: 10-point review of systems otherwise negative. Physical Examination: Vital Signs: Patient was afebrile stable. General: No acute distress. Alert and oriented x2. HEENT: Atraumatic, normocephalic. Neck: Supple. No JVD. Respiratory: Clear to auscultation. Normal air movement. Cardiovascular: Normal S1, S2. Gastrointestinal: Normal bowel sounds. Soft abdomen. No rebound tenderness. Musculoskeletal: No clubbing or edema. Skin: No rashes. No breakdown. Neurologic: Normal gait. Lymphatics: No axillary. : Both testicles were descended. Penis uncircumcised. No lesions. CHIDI deferred. Laboratory Data: Reviewed showed a white count of 22,800, H and H stable at 13 and 40, platelet count 233. Electrolytes reviewed. Assessment: Acute cystitis with pink hematuria, leukocytosis. Continue to monitor culture results. Continue IV antibiotics for now. Possible we could add tamsulosin to his regimen. Thank you very much. BRIAN Voice ID: [id number] Report ID: [id number] CHAVEZ
[2018-12-25] MEDS: NA CHLORIDE 0.9% 1,000 ML IV SCH ×3 (05:40→19:00)
[2018-12-25 05:44] LABS: BUN Blood Urea Nitrogen 11 mg/dL (7-18); Bicarbonate 24 mmol/L (21-32); Glucose Level 103 mg/dL (74-106); Magnesium 2.4 mg/dL (1.8-2.4); Potassium 3.5 mmol/L (3.5-5.1); Sodium Level 139 mmol/L (136-145)
[2018-12-25 05:51] LABS: Absolute Lymphocytes (CBC) 2.9 K/uL (0.7-4.9); Basophils % 0.1 % (0-1.3); Hematocrit 37.4 % (39.6-49.0); Lymphocytes % 18.8 % (15.3-44.8); MPV 8.6 fL (7.6-11.3); RBC Red Blood Cell Count 4.38 M/uL (4.33-5.43)
[2018-12-25] MEDS: CEFTRIAXONE/SWI 1gm 1 GM/10 ML SYR IV SCH (09:00)
[2018-12-25] MEDS ORDERED: POTASSIUM 25 MEQ EFFERV TAB PO ONE (09:00)
[2018-12-25] MEDS: TAMSULOSIN 0.4 MG SR CAP PO SCH (09:14)
--- NOTE | 2018-12-25 17:44 | PN ---
Date of Progress Note: 12/25/2018 Subjective: Patient is seen and examined. Chart was reviewed and case was discussed with RN. Jenna santacruz is more alert today. Case was discussed with Dr. Reese yesterday. Medications: List was reviewed. Physical Examination: Vital Signs: T-max was 102.8 yesterday afternoon, T-current is 99.2, heart rate 85, blood pressure 1 38/70, respirations 16, O2 94% on room air. General: Awake, alert, oriented x2. Elderly male, somew hat confused. CV: S1, S2. Regular rate and rhythm. Peripheral pulses present. Respiratory: Diminished breath sounds at the bases. No wheezing or stridor. Gastrointestinal: Abdomen is soft, nontender, nondistended. Positive bowel sounds. Extremities: No clubbing or cyanosis. No edema. Neuro: Cranial nerves 2 through 12 intact grossly. No focal neurological deficit. Speech is normal . Laboratory Data And Imaging: Sodium 139, potassium 3.5, chloride 106, CO2 24, BUN 11, creatinine 0.7 5, glucose 103, calcium 8.1. Magnesium 2.4. WBC 15.7, H and H 12.5 and 37.4, platelets 212, neutrop hils 72%. Cultures: Blood cultures: No growth to date. Urine culture is growing 100,000 colony-fo rming units of 4+ gram-negative rods. Chest x-ray from 12/24/2018, personally reviewed, shows mild COPD. Assessment And Plan: An 88-year-old male with: 1.Acute cystitis with hematuria secondary to gram-negative rods. We will follow up on culture resul ts. Patient is still febrile, has elevated white count, but trending down. If blood cultures are ne gative, we will continue with IV antibiotics. Patient may have multi-drug resistant bacteria in the urine. We will follow up with final culture results. 2.Systemic inflammatory response syndrome. Lactate was negative, now improved. No sepsis. Patient was given 1 L bolus yesterday along with workup including lactate and chest x-ray, which were negati ve. 3.Chronic obstructive pulmonary disease, chronic bronchitis. Continue nebulizer treatments as neede d. Non-oxygen dependent at home. 4.Benign prostatic hyperplasia. We will continue with tamsulosin. Appreciate Dr. Reese's input. 5.Deep vein thrombosis prophylaxis, SCDs. No chemical anticoagulation due to hematuria. 6.Plan: Likely discharge in the next 24-48 hours. We will have Physical therapy and Occupational t herapy evaluate the patient for possible home health with PT. PARVIN Voice ID: [id number] Report ID: [id number]
[2018-12-25 21:21] VITALS: O2SAT 97
[2018-12-26] MEDS: NA CHLORIDE 0.9% 1,000 ML IV SCH (00:13)
[2018-12-26 06:25] LABS: BUN Blood Urea Nitrogen 9 mg/dL (7-18); Bicarbonate 24 mmol/L (21-32); Glucose Level 103 mg/dL (74-106); Potassium 3.9 mmol/L (3.5-5.1); Sodium Level 140 mmol/L (136-145)
[2018-12-26 07:02] LABS: Absolute Lymphocytes (CBC) 2.8 K/uL (0.7-4.9); Basophils % 1.1 % (0-1.3); Hematocrit 37.8 % (39.6-49.0); Lymphocytes % 32.7 % (15.3-44.8); MPV 9.8 fL (7.6-11.3); RBC Red Blood Cell Count 4.41 M/uL (4.33-5.43)
[2018-12-26] MEDS: CEFTRIAXONE/SWI 1gm 1 GM/10 ML SYR IV SCH (08:34)
[2018-12-26] MEDS: TAMSULOSIN 0.4 MG SR CAP PO SCH (08:34)
[2018-12-26 08:54] VITALS: BP 135/76; TEMP 98.2
[2018-12-26] MEDS ORDERED: POTASSIUM CL SA 10 MEQ TAB PO ONE (09:00)
--- NOTE | 2018-12-26 15:07 | DS ---
Date of Discharge: 12/26/2018 Admitting Diagnoses: 1. Acute cystitis with hematuria. 2. Leukocytosis. 3. Chronic obstructive pulmonary disease. Discharge Diagnoses: 1. Acute cystitis with hematuria, the infection is due to Proteus. 2. BPH. 3. Chronic obstructive pulmonary disease and chronic bronchitis. 4. Systemic inflammatory response syndrome, resolved. Hospital Course: The patient is an 88-year-old male with past medical history of COPD, kidney stones, comes in with hematuria and dysuria. The patient had elevated white blood cell count of 22,000, did not meet criteria for sepsis. Upon admission, the patient was started on IV antibiotics. Cultures were obtained, which grew out Proteus, sensitive to Bactrim. The patient's blood culture does not show any growth. He did have some elevated lactate and systemic inflammatory response syndrome, but did not have sepsis. He improved with IV fluid resuscitation. The patient was also seen by a urologist, Dr. Reese for hematuria. Patient had improvement in his condition. He was able to ambulate with assist. He was then cleared for discharge. His culture results showed Proteus, which were sensitive to Bactrim. He was then sent home in a stable condition. Activity: Fall precautions. Medications: As per medication reconciliation list. Followup: Follow up with primary care physician in 2-3 days. Follow up with urologist, Dr. Reese, in 2 weeks. Return to ER for worsening condition. Physical Examination: General: Awake, alert, oriented x3, elderly male. CV: S1, S2. Respiratory: Moving air well bilaterally. Abdomen: Abdomen is soft, nontender, nondistended. Positive bowel sounds. Extremities: No clubbing, cyanosis, or edema. Neurologic: Nonfocal. Consultants: Dr. Reese with Urology. Total time spent discharging the patient was 35 minutes. /BHUPENDRA Voice ID: [id number] Report ID: [id number] CHAVEZ
== END 2018-12-26 10:53 | disposition home or self-care (01) | DRG 690 ==
LOC: ER 22:38 → ERHOLD 12-24 02:49 → 2ND 12-24 03:00
PROVIDERS: ADMIT Internal Medicine; ATTEND Internal Medicine
DX: N30.01 Acute cystitis with hematuria (principal); B96.4 Proteus (mirabilis) (morganii) as the cause of diseases classified elsewhere; N40.0 Benign prostatic hyperplasia without lower urinary tract symptoms; J44.9 Chronic obstructive pulmonary disease, unspecified; Z87.442 Personal history of urinary calculi
CPT/HCPCS: 36415; 71045; 74176; 76377; 80048; 81003; 81015; 83605; 83735; 84145; 85025; 87040; 87077; 87086; 87088; 87186; 94760; 96365; 97116; 97161; 97530; 99285; J0696; J7030

== ENCOUNTER 2020-04-11 08:17 | Day surgery (SDC) | payer OTHER ==
--- NOTE | 2020-04-07 16:45 | RAD REPORT ---
EXAM DESCRIPTION: RAD - Chest Pa And Lat (2 Views) - 04/07/2020 4:09 pm CLINICAL HISTORY: pre op Chest pain. COMPARISON: Chest Single View dated 12/24/2018; Chest Single View dated 06/01/2018; CHEST SINGLE VIEW dated 07/29/2013; CHEST SINGLE VIEW dated 01/14/2013 FINDINGS: The lungs are mildly emphysematous but clear. The heart is mildly enlarged in size. No dis placed fractures. Aortic atherosclerosis. IMPRESSION: Mild COPD.
[2020-04-07 16:55] LABS: Basophils % 0.9 % (0-1.3); Hematocrit 40.1 % (39.6-49.0); Lymphocytes % 41.4 % (15.3-44.8); MPV 8.3 fL (7.6-11.3); RBC Red Blood Cell Count 4.73 M/uL (4.33-5.43)
[2020-04-07 16:58] LABS: Protime INR 0.98
[2020-04-07 17:14] LABS: Potassium 3.4 mmol/L (3.5-5.1)
[~2020-04-11 08:17] MED LIST: HEPA 1000U/500MLS 1,000 UNIT/500 ML BAG IV ONE; LIDOCAINE 1% 20 ML MDV ONE
[2020-04-11] MEDS ORDERED: NA CHLORIDE 0.9% 500 ML ONE (08:43)
[2020-04-11] MEDS ORDERED: NA CHLORIDE 0.9% 50 ML ONE (09:57)
[2020-04-11] MEDS ORDERED: FENTANYL CITR 100 MCG/2 ML ONE (09:57)
[2020-04-11] MEDS ORDERED: MIDAZOLAM HCL 2 MG/2 ML INJ ONE (09:57)
[2020-04-11] MEDS ORDERED: ATROPINE SULF 1 MG/10 ML SYR IV ONE (09:57)
[2020-04-11] MEDS ORDERED: PRASUGREL (EFFIENT) 10 MG TAB ONE (11:33)
[2020-04-11] MEDS ORDERED: ASPIRIN 325 MG TAB ONE (11:33)
[2020-04-11] MEDS ORDERED: MORPHINE 4 MG/ML SYR IV PRN (11:53)
[2020-04-11] MEDS ORDERED: NA CHLORIDE 0.9% 1,000 ML IV SCH (12:00)
[2020-04-11] MEDS ORDERED: NITROGLYCERIN 0.4 MG/TAB SL PRN (12:00)
[2020-04-11] MEDS ORDERED: ACETAMINOPHEN 325 MG TABLET PO PRN (12:00)
--- NOTE | 2020-04-11 12:07 | OP ---
Date of Procedure: 04/11/2020 Surgeon: Omar Donaldson MD Academic Affairs Director: Gerard York. Indication: Unstable angina, and coronary artery disease. Mr. Kirk is an 89-year-old white male was brought to the label stamper today as an outpatient for a heart catheterization because of unstable angina. Procedure In Detail: He was prepped and draped in the routine sterile fashion. Given Versed for sed ation and fentanyl. A 6-Slovenian sheath introduced in the right common femoral artery successfully usi ng the Seldinger technique. JL4 and JR4 were used to select the left main and right main respectivel y. His RCA itself was normal. He had a 99% distal ostial PDA and a completely occluded PDA distally with collaterals coming from the left system. His posterolateral branch was normal. His left main was normal. His LAD was normal. He had a proximal 70%-80% circumflex stenosis. Intervention was de cided upon of the circumflex. An XB 3.5 with side hole was used to cannulate the left main. Angioma x was given. Aspirin and Effient was given. A guide wire 0.014 [place] was used to cross the lesion successfully. Angioplasty with a 2.5 x 15 Emerge was done of the proximal circumflex at 14 atmospher es. Following that, a 3.0 x 16 Synergy stent was placed in the stenosis at 11 atmosphere with excell ent results, 0% residual. As earlier stated, the patient received Angiomax, aspirin and Effient duri ng the procedure. There were no complications. Blood Loss: 5 mL. Postoperative Diagnosis: Successful angioplasty and stent at the proximal circumflex. Medical thera py for the RCA, PDA stenosis. Plan: Plan is to continue present medical regimen. He will be on aspirin, statin, low-dose beta blo cker and Plavix when he goes home. He will remain in the hospital overnight for observation post ana luisa nt. Slight EKG changes during the procedure and arrhythmia. We will send him home in the morning. Anesthesia: Total conscious sedation was 60 minutes. NB/MODL Voice ID: [id number] Report ID: [id number]
[2020-04-11 12:55] VITALS: BMI 27.3
[2020-04-11] MEDS ORDERED: ATORVASTATIN 40 MG TAB PO SCH (21:00)
[2020-04-12 06:44] VITALS: O2SAT 97
[2020-04-12 06:50] VITALS: BP 153/65; TEMP 98.2
[2020-04-12] MEDS ORDERED: ASPIRIN 81 MG CHEWABLE TABLET PO SCH (09:00)
[2020-04-12] MEDS ORDERED: CLOPIDOGREL 75 MG TABLET PO SCH (09:00)
--- NOTE | 2020-04-16 12:47 | DS ---
Date of Discharge: 04/12/2020 Hospital Course: Mr. Kirk underwent an angioplasty and stent of the circumflex on 04/11/2020. Over night, he was stable. His vital signs were stable. He was afebrile. He was asymptomatic. His groi n site was intact. He has good distal pulses on the right side. His chest was clear. Hi s cardiac exam was normal. Plan: The plan is to send him home today with his home medications, which will include aspirin, Plav ix, Lipitor, and Toprol and he will see me in the office in the next 2 weeks. MG/BHUPENDRA Voice ID: [id number] Report ID: [id number]
== END 2020-04-12 09:22 | disposition home or self-care (01) ==
LOC: CCL 08:17 → 2ND 11:49 → CCL 04-12 09:22
DX: I25.110 Atherosclerotic heart disease of native coronary artery with unstable angina pectoris (principal); Z20.828 Contact with and (suspected) exposure to other viral communicable diseases; Z79.02 Long term (current) use of antithrombotics/antiplatelets; Z79.82 Long term (current) use of aspirin; I65.21 Occlusion and stenosis of right carotid artery; E78.2 Mixed hyperlipidemia; J44.9 Chronic obstructive pulmonary disease, unspecified
CPT/HCPCS: 93005; 85025; 80048; 36415; 85610; 85347 ×2; 85730; 71046; 93454; U0002; C1893; C1760; C1725; C9600; J2250; J3010; J0583; J7040; J7030; J1644

== ENCOUNTER 2021-03-04 15:39 | Emergency (ER) | payer OTHER ==
--- NOTE | 2021-03-04 16:59 | ER ---
[facility] Name: Cristi Kirk Sr Age: 89 yrs Sex: Male : 1930 Arrival Date: 03/04/2021 Time: 15:39 Bed 7 Private MD: Loco Virk R Diagnosis: Laceration without foreign body of left forearm-skin tear Presentation: 03/04 16:11 Chief complaint: Patient's son or daughter states: HIT ARM ON TRIM WHILE GETTING OFF bp TOILET, LAC TO LEFT FA. Coronavirus screen: At this time, the client does not indicate any symptoms associated with coronavirus-19. Ebola Screen: No symptoms or risks identified at this time. Initial Sepsis Screen: Does the patient meet any 2 criteria? No. Patient's initial sepsis screen is negative. Does the patient have a suspected source of infection? No. Patient's initial sepsis screen is negative. Risk Assessment: Do you want to hurt yourself or someone else? Patient reports no desire to harm self or others. Onset of symptoms was March 04, 2021 at 15:45. 16:11 Method Of Arrival: Wheelchair bp 16:11 Acuity: RAKESH 3 bp Triage Assessment: 16:15 General: Appears distressed, uncomfortable, Behavior is cooperative, appropriate for bp age, anxious. Pain: Denies pain. EENT: No deficits noted. Neuro: No deficits noted. Cardiovascular: No deficits noted. Respiratory: No deficits noted. GI: No signs and/or symptoms were reported involving the gastrointestinal system. : No signs and/or symptoms were reported regarding the genitourinary system. Derm: No deficits noted. Musculoskeletal: No deficits noted. Injury Description: Laceration sustained to dorsal aspect of left forearm is full thickness, jagged, 7.6 to 20 cm long, bleeding moderately. Historical: - Allergies: 16:16 No Known Allergies; aa5 16:17 No Known Allergies; bp - PMHx: 16:16 Kidney stones; UTI; aa5 - PSHx: 16:16 Appendectomy; colon; aa5 - Immunization history:: Adult Immunizations not up to date. - Social history:: Smoking status: Patient denies any tobacco usage or history of. Screenin:15 Abuse screen: Denies threats or abuse. Denies injuries from another. Nutritional bp screening: No deficits noted. Tuberculosis screening: No symptoms or risk factors identified. Fall Risk None identified. Assessment: 16:15 General: SEE TRIAGE NOTE. bp 17:13 Reassessment: PT D/C HOME VIA W/C WITH FAMILY, DX WITH LEFT FOREARM LACERATION. bp Vital Signs: 16:11 BP 138 / 68; Pulse 77; Resp 16; Temp 97.9; Pulse Ox 97% ; bp 16:15 BP 118 / 81; Pulse 71; Resp 16; Pulse Ox 97% ; bp 16:54 BP 129 / 58; Pulse 78; Resp 16; Pulse Ox 97% ; bp ED Course: 15:39 Patient arrived in ED. am2 15:40 Loco Virk MD is Private Physician. am2 15:45 James Duran, ANTHONY is Primary Nurse. bp 15:52 Richard Tolentino, PRECISION LATHE OPERATOR is PHCP. pm1 15:52 Mango King MD is Attending Physician. pm1 16:15 Triage completed. bp 16:15 Patient has correct armband on for positive identification. Bed in low position. Call bp light in reach. Side rails up X2. Adult w/ patient. 16:15 Wound care: to laceration located on dorsal aspect of left forearm was cleaned with bp dressed with ABD pads. 16:17 Arm band placed on. bp 17:13 Assist provider with laceration repair on dorsal aspect of left forearm that was bp between 7.6 to 12.5 cm using Dermabond. Set up tray. Performed by Richard Tolentino PRECISION LATHE OPERATOR Dressed with 4X4s, Patient tolerated well. 17:20 Patient did not have IV access during this emergency room visit. bp Administered Medications: 16:05 Drug: Lidocaine (1 %) 5 ml Volume: 5 ml; Route: Infiltration; bp 16:09 Drug: Tetanus-Diphtheria Toxoid Adult 0.5 ml {Thinner Sprayer: Guided Interventions. Exp: bp 09/15/2022. Lot #: [id number]. } Route: IM; Site: right deltoid; 16:56 Follow up: Response: No adverse reaction bp Outcome: 16:59 Discharge ordered by . pm1 17:13 Discharged to home via wheelchair, with family. bp 17:13 Condition: stable 17:13 Discharge instructions given to patient, family, Instructed on discharge instructions, follow up and referral plans. medication usage, wound care, Demonstrated understanding of instructions, follow-up care, medications, wound care, Prescriptions given X 1. 17:20 Patient left the ED. bp Signatures: Cora Mckeon, RN RN aa5 Richard Tolentino NP PRECISION LATHE OPERATOR pm1 Kirstin Engle am2 James Duran RN RN bp
--- NOTE | 2021-03-04 16:59 | EDPHYS ---
Physician Documentation [facility] Name: Cristi Kirk Sr Age: 89 yrs Sex: Male : 1930 Arrival Date: 03/04/2021 Time: 15:39 Bed 7 Private MD: Loco Virk R ED Physician Mango King HPI: 03/04 15:59 This 89 yrs old Male presents to ER via Wheelchair with complaints of Arm pm1 Injury, Laceration To Arm. 15:59 The patient or guardian complains of a laceration, irregular. The complaints affect the pm1 dorsal aspect of left forearm. Context: The problem was sustained at home, resulted from losing his balance while standing up from the commode and cutting his arm against the sharp edge of a wall. Patient did not fall . Onset: The symptoms/episode began/occurred just prior to arrival. Treatment prior to arrival includes: applying pressure to the affected area. Associated signs and symptoms: The patient has no apparent associated signs or symptoms. Severity of symptoms: in the emergency department the symptoms have improved. The patient has not experienced similar symptoms in the past. The patient has not recently seen a physician. Historical: - Allergies: 16:16 No Known Allergies; aa5 16:17 No Known Allergies; bp - PMHx: 16:16 Kidney stones; UTI; aa5 - PSHx: 16:16 Appendectomy; colon; aa5 - Immunization history:: Adult Immunizations not up to date. - Social history:: Smoking status: Patient denies any tobacco usage or history of. ROS: 15:59 Constitutional: Negative for fever, chills, and weight loss, Cardiovascular: Negative pm1 for chest pain, palpitations, and edema, Respiratory: Negative for shortness of breath, cough, wheezing, and pleuritic chest pain. 15:59 Neuro: Negative for headache, weakness, numbness, tingling, and seizure. 15:59 MS/extremity: Positive for laceration, of the dorsal aspect of left forearm. 15:59 Skin: Positive for laceration(s), of the dorsal aspect of left forearm. 15:59 All other systems are negative. Exam: 15:59 Constitutional: This is a well developed, well nourished patient who is awake, alert, pm1 and in no acute distress. Head/Face: Normocephalic, atraumatic. 15:59 Cardiovascular: Exam negative for acute changes, Rate: normal, Rhythm: regular, Pulses: no pulse deficits are appreciated. 15:59 Respiratory: Exam negative for acute changes, respiratory distress, shortness of breath. 15:59 Abdomen/GI: Exam negative for acute changes, Inspection: abdomen appears normal, Palpation: abdomen is soft and non-tender, in all quadrants. 15:59 Skin: Appearance: normal except for affected area, injury, laceration(s), the wound is approximately 12 cm(s), of the dorsal aspect of left forearm, that can be described as clean, no foreign body, irregular, with mild bleeding, skin tear. 15:59 Neuro: Exam negative for acute changes, Orientation: is normal, Mentation: is normal, Motor: is normal, moves all fours. Vital Signs: 16:11 BP 138 / 68; Pulse 77; Resp 16; Temp 97.9; Pulse Ox 97% ; bp 16:15 BP 118 / 81; Pulse 71; Resp 16; Pulse Ox 97% ; bp 16:54 BP 129 / 58; Pulse 78; Resp 16; Pulse Ox 97% ; bp Laceration: 16:54 Wound Repair of 12cm ( 4.7in ) subcutaneous laceration to dorsal aspect of left pm1 forearm. skin tear. Distal neuro/vascular/tendon intact. Anesthesia: Local anesthetic administered with 5 mls of 1% lidocaine. Wound prep: Extensive cleansing with hibiclenz by me, Wound irrigation with saline by me, Wound explored extensively, Copious irrigation. Skin closed with thin layer Adhesive skin closure using Dermabond. Dressed with non-adherent dressing. Patient tolerated well. MDM: 15:52 Patient medically screened. pm1 16:54 Data reviewed: vital signs. Data interpreted: Pulse oximetry: on room air is 97 %. pm1 Interpretation: normal. Counseling: I had a detailed discussion with the patient and/or guardian regarding: the historical points, exam findings, and any diagnostic results supporting the discharge/admit diagnosis, the need for outpatient follow up, to return to the emergency department if symptoms worsen or persist or if there are any questions or concerns that arise at home. 03/04 15:59 Order name: Dermabond; Complete Time: 16:06 pm1 03/04 15:59 Order name: Dressing - Wound; Complete Time: 16:06 pm1 03/04 15:59 Order name: Gloves, Sterile; Complete Time: 16:06 pm1 03/04 15:59 Order name: Prolene, Sutures; Complete Time: 16:06 pm1 03/04 15:59 Order name: Setup Suture Tray; Complete Time: 16:06 pm1 Administered Medications: 16:05 Drug: Lidocaine (1 %) 5 ml Volume: 5 ml; Route: Infiltration; bp 16:09 Drug: Tetanus-Diphtheria Toxoid Adult 0.5 ml {Desktop Specialist: [employer]. Exp: bp 09/15/2022. Lot #: [id number]. } Route: IM; Site: right deltoid; 16:56 Follow up: Response: No adverse reaction bp Disposition: 18:09 Co-signature as Attending Physician, Mango King MD I agree with the assessment and kdr plan of care. Disposition Summary: 03/04/21 16:59 Discharge Ordered Location: Home pm1 Problem: new pm1 Symptoms: have improved pm1 Condition: Stable pm1 Diagnosis - Laceration without foreign body of left forearm - skin tear pm1 Followup: pm1 - With: Emergency Department - When: As needed - Reason: Worsening of condition Followup: pm1 - With: Private Physician - When: 2 - 3 days - Reason: Recheck today's complaints, Continuance of care, Re-evaluation by your physician Discharge Instructions: - Discharge Summary Sheet pm1 - Tissue Adhesive Wound Care pm1 Forms: - Medication Reconciliation Form pm1 - Thank You Letter pm1 - Antibiotic Education pm1 - Prescription Opioid Use pm1 Prescriptions: - Cephalexin 500 mg Oral Capsule - take 1 capsule by ORAL route every 12 hours for 10 days; 20 capsule; Refills: pm1 0, Product Selection Permitted Signatures: Mango King MD MD [facility] Croa Mckeon, RN RN aa5 Richard Tolentino NP TENTS ASSEMBLER pm1 James Duran, RN RN bp
[2021-03-04] MEDS ORDERED: LIDOCAINE 1% MPF 5 ML VIAL ONE ×2 (17:01→17:04)
[2021-03-04] MEDS ORDERED: DERMABOND SKIN ADHESIVE TOP ONE ×3 (17:01→17:43)
[2021-03-04] MEDS ORDERED: TETANUS & DIPHTHERIA TOX,ADULT 0.5 ML VIAL ONE (17:04)
[2021-03-04 17:25] VITALS: TEMP 97.9; O2SAT 97
[2021-03-04 17:28] VITALS: BP 129/58
== END 2021-03-04 17:20 | disposition home or self-care (01) ==
LOC: ER 15:39
PROC: 0JQH0ZZ Repair Left Lower Arm Subcutaneous Tissue and Fascia, Open Approach (ICD-10-PCS; principal; 2021-03-04)
DX: S51.812A Laceration without foreign body of left forearm, initial encounter (principal); W26.8XXA Contact with other sharp object(s), not elsewhere classified, initial encounter; Z23 Encounter for immunization
CPT/HCPCS: 90471; 90714; 99284

== ENCOUNTER 2021-05-02 08:59 | Emergency (ER) | payer OTHER ==
--- NOTE | 2021-05-02 09:55 | RAD REPORT ---
EXAM DESCRIPTION: RAD - Chest Pa And Lat (2 Views) - 05/02/2021 9:31 am CLINICAL HISTORY: COUGH COMPARISON: Two view chest April 2020 TECHNIQUE: Frontal and lateral views of the chest were obtained. FINDINGS: The lungs are clear of peripheral mass or consolidation. Interstitial pattern is not clear ly different from comparison. Mildly prominent interstitial pattern matches comparison. Heart size i s normal and central vasculature is within normal limits. No pleural effusion or pneumothorax seen. No acute bony finding noted. No aortic abnormality. IMPRESSION: No acute cardiopulmonary process. No significant change from comparison study.
[2021-05-02 10:43] LABS: SARS-COV-2 RT PCR POSITIVE (NEGATIVE)
--- NOTE | 2021-05-02 11:00 | EDPHYS ---
Physician Documentation [facility] Name: Cristi Kirk Sr Age: 89 yrs Sex: Male : 1930 Arrival Date: 05/02/2021 Time: 09:00 Bed 11 Private MD: ED Physician Mango King HPI: 05/02 09:25 This 89 yrs old Male presents to ER via EMS with complaints of Flu Symptoms. cp 09:25 The patient or guardian reports cough, that is intermittent, flu symptoms, fever, body cp aches. Onset: The symptoms/episode began/occurred last night. Associated signs and symptoms: Pertinent positives: sore throat, Pertinent negatives: chest pain, diarrhea, vomiting. 09:25 Severity of symptoms: in the emergency department the symptoms are unchanged despite cp home interventions. Historical: - Allergies: 09:09 No Known Allergies; vg1 - Home Meds: 09:09 memantine oral [Active]; vg1 - PMHx: 09:09 Kidney stones; UTI; Alzheimer's disease; vg1 - PSHx: 09:09 Appendectomy; Colon; Stented artery; vg1 - Immunization history:: unknown. - Social history:: Smoking status: Patient/guardian denies using tobacco, the patient reports quitting approximately 30 years ago. ROS: 09:30 Constitutional: Negative for fever, poor PO intake. cp 09:30 Eyes: Negative for injury, pain, redness, and discharge. cp 09:30 Cardiovascular: Negative for chest pain. 09:30 Respiratory: Positive for cough, Negative for shortness of breath, wheezing. 09:30 Abdomen/GI: Negative for abdominal pain, vomiting, diarrhea, constipation. 09:30 : Negative for urinary symptoms. cp 09:30 Neuro: Negative for altered mental status, headache, syncope, weakness. 09:30 All other systems are negative. Exam: 09:33 Constitutional: The patient appears in no acute distress, alert, awake, cp non-diaphoretic, non-toxic, well developed, frail. 09:33 Head/Face: Normocephalic, atraumatic. cp 09:33 Eyes: Periorbital structures: appear normal, Conjunctiva: normal, no exudate, no injection, Sclera: no appreciated abnormality, Lids and lashes: appear normal, bilaterally. 09:33 ENT: External ear(s): are unremarkable, Ear canal(s): are normal, clear, TM's: dullness, bilaterally, Nose: is normal, Mouth: Lips: moist, Oral mucosa: pink and intact, moist, Posterior pharynx: Airway: no evidence of obstruction, patent, erythema, is not appreciated, exudate, is not appreciated. 09:33 Neck: ROM/movement: is normal, is supple, without pain, no range of motions limitations, no meningismus, Lymph nodes: no appreciated lymphadenopathy. 09:33 Chest/axilla: Inspection: normal. 09:33 Cardiovascular: Rate: normal, Rhythm: regular. 09:33 Respiratory: the patient does not display signs of respiratory distress, Respirations: normal, no use of accessory muscles, no retractions, labored breathing, is not present, Breath sounds: are clear throughout, no decreased breath sounds, no stridor, no wheezing. 09:33 Abdomen/GI: Exam negative for discomfort, distension, guarding, Inspection: abdomen appears normal. 09:33 Neuro: Orientation: no acute changes, per EMS, Mentation: no acute changes, per EMS. Vital Signs: 09:04 BP 117 / 66; Pulse 90; Resp 18; Temp 99.1(O); Pulse Ox 100% ; Height 5 ft. 9 in. vg1 (175.26 cm); Pain 0/10; MDM: 10:00 Differential diagnosis: bronchitis, flu, COVID-19, strep throat. cp 10:53 Patient medically screened. cp 10:58 Data reviewed: vital signs, nurses notes, lab test result(s), radiologic studies, plain cp films. Test interpretation: by ED physician or midlevel provider: plain radiologic studies. Counseling: I had a detailed discussion with the patient and/or guardian regarding: the historical points, exam findings, and any diagnostic results supporting the discharge/admit diagnosis, lab results, radiology results, to return to the emergency department if symptoms worsen or persist or if there are any questions or concerns that arise at home. 10:58 ED course: VSS. Patient appears non-toxic and no signs of respiratory distress. Will cp discharge to home for continued monitoring. 05/02 09:15 Order name: COVID-19/FLU A+B (Document "Date of Onset" if Symptomatic) cp 05/02 09:15 Order name: Strep; Complete Time: 10:22 05/02 09:15 Order name: XRAY Chest Pa And Lat (2 Views); Complete Time: 10:22 05/02 10:22 Interpretation: Report reviewed. 05/02 10:08 Order name: Throat Culture EDMS Administered Medications: No medications were administered Disposition: 14:23 Co-signature as Attending Physician, Mango King MD I agree with the assessment and kdr plan of care. Disposition Summary: 05/02/21 10:59 Discharge Ordered Location: Home cp Problem: new cp Symptoms: have improved cp Condition: Stable cp Diagnosis - SARS-associated coronavirus as the cause of diseases classified elsewhere cp Followup: cp - With: Private Physician - When: 2 - 3 days - Reason: Worsening of condition Discharge Instructions: - Discharge Summary Sheet cp - Aspirin and Your Heart cp - COVID-19 cp - Things to Know about the COVID-19 Pandemic - [facility] cp - 10 Things You Can Do to Manage Your COVID-19 Symptoms at Home - [facility] cp - COVID-19: Quarantine vs. Isolation - [facility] cp - Prevent the Spread of COVID-19 if You Are Sick - [facility] cp Forms: - Medication Reconciliation Form cp - Thank You Letter cp - Antibiotic Education cp - Prescription Opioid Use cp Prescriptions: - Bromfed DM 2-30-10 mg/5 mL Oral syrup - take 10 milliliter by ORAL route every 6 hours As needed; 200 milliliter; cp Refills: 0, Product Selection Permitted Signatures: Dispatcher [employer] EDMS Mango King MD MD kdr Page, Corey, PA PA cp Justine Lomas, RN RN vg1
--- NOTE | 2021-05-02 11:00 | ER ---
Nurse's Notes [facility] Name: Cristi Kirk Sr Age: 89 yrs Sex: Male : 1930 Arrival Date: 05/02/2021 Time: 09:00 Bed 11 Private MD: Diagnosis: SARS-associated coronavirus as the cause of diseases classified elsewhere Presentation: 05/02 09:04 Chief complaint: EMS states: Flu like symptoms of cough and fever began yesterday. EMS vg1 states temperature on scene was 97.9 orally. Coronavirus screen: Client denies travel out of the [place] in the last 14 days. pt is unsure of covid vaccination. Ebola Screen: Patient negative for fever greater than or equal to 101.5 degrees Fahrenheit, and additional compatible Ebola Virus Disease symptoms. Initial Sepsis Screen: Does the patient meet any 2 criteria? No. Patient's initial sepsis screen is negative. Does the patient have a suspected source of infection? No. Patient's initial sepsis screen is negative. Risk Assessment: Do you want to hurt yourself or someone else? Patient reports no desire to harm self or others. Onset of symptoms was May 02, 2021. 09:04 Method Of Arrival: EMS: [facility] vg1 09:04 Acuity: RAKESH 4 vg1 Triage Assessment: 09:09 General: Appears in no apparent distress. comfortable, Behavior is calm, cooperative. vg1 Pain: Denies pain. Neuro: Level of Consciousness is awake, alert, obeys commands, Oriented to person, place, time. Respiratory: Airway is patent Respiratory effort is even, unlabored. Historical: - Allergies: 09:09 No Known Allergies; vg1 - Home Meds: 09:09 memantine oral [Active]; vg1 - PMHx: 09:09 Kidney stones; UTI; Alzheimer's disease; vg1 - PSHx: 09:09 Appendectomy; Colon; Stented artery; vg1 - Immunization history:: unknown. - Social history:: Smoking status: Patient/guardian denies using tobacco, the patient reports quitting approximately 30 years ago. Vital Signs: 09:04 BP 117 / 66; Pulse 90; Resp 18; Temp 99.1(O); Pulse Ox 100% ; Height 5 ft. 9 in. vg1 (175.26 cm); Pain 0/10; ED Course: 09:00 Patient arrived in ED. am2 09:09 Triage completed. vg1 09:09 Arm band placed on. vg1 09:15 Ruslan Boykin PA is PHCP. cp 09:15 Mango King MD is Attending Physician. cp 09:18 COVID swab sent to lab. Flu and/or RSV swab sent to lab. Strep swab sent to lab. vg1 09:30 XRAY Chest Pa And Lat (2 Views) In Process Unspecified. EDMS 11:15 Christiano Bustos, RN is Primary Nurse. jl7 11:15 Patient has correct armband on for positive identification. jl7 11:15 No provider procedures requiring assistance completed. Patient did not have IV access jl7 during this emergency room visit. Administered Medications: No medications were administered Outcome: 10:59 Discharge ordered by MD. cp 11:15 Discharged to home via wheelchair, with family. jl7 11:15 Condition: stable 11:15 Discharge instructions given to patient, family, Instructed on discharge instructions, follow up and referral plans. medication usage, Demonstrated understanding of instructions, follow-up care, medications, Prescriptions given X 1. 11:16 Patient left the ED. jl7 Signatures: Dispatcher [employer] EDAZ Ruslan Boykin PA PA cp Leal, Jahala, RN RN jl7 Kirstin Engle Victoria, RN RN vg1
[2021-05-02 11:21] VITALS: BP 117/66; TEMP 99.1; O2SAT 100
== END 2021-05-02 11:16 | disposition home or self-care (01) ==
LOC: ER 08:59
DX: U07.1 COVID-19 (principal)
CPT/HCPCS: 0240U; 71046; 87070; 87081; 99284

== ENCOUNTER 2021-05-03 08:00 | Inpatient (IN) | payer OTHER ==
[2021-05-03 09:15] LABS: Hematocrit 41.8 % (39.6-49.0); Lymphocytes % 29.1 % (15.3-44.8); MPV 7.5 fL (7.6-11.3); RBC Red Blood Cell Count 4.91 M/uL (4.33-5.43)
[2021-05-03 09:21] LABS: Protime INR 0.99
[2021-05-03] MEDS ORDERED: FAMOTIDINE 20 MG/2 ML VIAL IV ONE (09:22)
[2021-05-03 09:31] LABS: ALT/SGPT 18 U/L (12-78); AST/SGOT 24 U/L (15-37); Albumin 3.4 g/dL (3.4-5.0); Alkaline Phosphatase 85 U/L (45-117); BUN Blood Urea Nitrogen 19 mg/dL (7-18); Bicarbonate 27 mmol/L (21-32); Bilirubin Direct < 0.1 mg/dL (0-0.2); Bilirubin Total 0.3 mg/dL (0.2-1.0); Ferritin 284.9 ng/mL (26-388); Glucose Level 117 mg/dL (74-106); Magnesium 2.4 mg/dL (1.8-2.4); NT PRO-BNP 696 pg/mL (<450); Potassium 3.8 mmol/L (3.5-5.1); Protein, Total 7.6 g/dL (6.4-8.2); Sodium Level 135 mmol/L (136-145); Troponin (Emerg Dept Use Only) < 0.02 ng/mL (0.0-0.045)
--- NOTE | 2021-05-03 10:11 | ER ---
Nurse's Notes [facility] Name: Cristi Kirk Sr Age: 89 yrs Sex: Male : 1930 Arrival Date: 05/03/2021 Time: 08:03 Bed 18 Private MD: Diagnosis: Hypoxemia;Coronavirus infection, unspecified;Pneumonia due to SARS-associated coronavirus;Weakness;Alzheimer's disease, unspecified;UTI/ Urinary tract infection, site not specified Presentation: 05/03 08:23 Chief complaint: EMS states: covid + low O2. Coronavirus screen: Vaccine status: rose Patient reports being unvaccinated. Client reports previous positive COVID test result. Date of collection: May 02, 2021. Ebola Screen: Patient denies travel to an Ebola-affected area in the 21 days before illness onset. Initial Sepsis Screen: Does the patient meet any 2 criteria? No. Patient's initial sepsis screen is negative. Does the patient have a suspected source of infection? No. Patient's initial sepsis screen is negative. Risk Assessment: Do you want to hurt yourself or someone else? Patient reports no desire to harm self or others. Onset of symptoms was May 02, 2021. 08:23 Method Of Arrival: EMS: [facility] 08:23 Acuity: RAKESH 3 Triage Assessment: 08:24 General: Appears in no apparent distress. Behavior is calm. rose Historical: - Allergies: 08:32 No Known Allergies; jl7 - Home Meds: 08:24 memantine Oral [Active]; rose - PMHx: 08:24 Alzheimer's disease; Kidney stones; UTI; rose - PSHx: 08:24 Appendectomy; Colon; Stented artery; rose - Social history:: Smoking status: Patient denies any tobacco usage or history of. - Family history:: not pertinent. Screenin:09 Abuse screen: Denies threats or abuse. Nutritional screening: No deficits noted. vg1 Tuberculosis screening: No symptoms or risk factors identified. Fall Risk No fall in past 12 months (0 pts). No secondary diagnosis (0 pts). IV access (20 points). Ambulatory Aid- None/Bed Rest/Nurse Assist (0 pts). Gait- Normal/Bed Rest/Wheelchair (0 pts) Mental Status- Overestimates/Forgets Limitations (15 pts.). Total Stokes Fall Scale indicates Low Risk Score (25-44 pts). Fall prevention measures have been instituted. Side Rails Up X 2 Placed close to Nursing Station. Assessment: 08:35 General: Appears in no apparent distress. uncomfortable, Behavior is calm, cooperative. vg1 Pain: Denies pain. Neuro: Level of Consciousness is awake, alert, confused, Oriented to person, Pt daughter states she noticed he 'wasn't himself this morning'. . Cardiovascular: Patient's skin is warm and dry. Respiratory: Airway is patent Respiratory effort is even, unlabored, Breath sounds are diminished in left posterior lower lobe and right posterior lower lobe. GI: No signs and/or symptoms were reported involving the gastrointestinal system. : No signs and/or symptoms were reported regarding the genitourinary system. EENT: No signs and/or symptoms were reported regarding the EENT system. Derm: Skin is intact, Skin is pink, warm \T\ dry. Musculoskeletal: Circulation, motion, and sensation intact. 10:50 Reassessment: Patient appears in no apparent distress at this time. No changes from vg1 previously documented assessment. Patient and/or family updated on plan of care and expected duration. Pain level reassessed. resting with eyes closed. 11:19 Reassessment: Daughter phone number, Kary [phone]. vg1 12:15 Reassessment: Patient appears in no apparent distress at this time. No changes from vg1 previously documented assessment. Patient and/or family updated on plan of care and expected duration. Pain level reassessed. 21:24 Reassessment: No changes from previously documented assessment. Patient and/or family kd3 updated on plan of care and expected duration. Pain level reassessed. Patient is alert, oriented x 3, equal unlabored respirations, skin warm/dry/pink. Vital Signs: 08:23 BP 112 / 53; Pulse 96; Resp 18; Temp 98.6(TE); Pulse Ox 96% on R/A; Weight 81.65 kg; rose Height 5 ft. 9 in. (175.26 cm); 08:35 BP 121 / 70; Pulse 88; Resp 19; Pulse Ox 95% ; vg1 09:30 BP 116 / 63; Pulse 89; Resp 19; Pulse Ox 95% on R/A; vg1 10:57 BP 133 / 62; Pulse 83; Resp 15; Pulse Ox 97% on R/A; vg1 11:00 BP 123 / 60; Pulse 76; Resp 17; Pulse Ox 98% on R/A; vg1 21:25 BP 117 / 64; Pulse 80; Resp 18; Pulse Ox 100% ; kd3 08:23 Body Mass Index 26.58 (81.65 kg, 175.26 cm) rose ED Course: 08:03 Patient arrived in ED. as 08:07 Ruslan Valverde MD is Attending Physician. evan 08:24 Triage completed. rose 08:29 Justine Lomas, RN is Primary Nurse. vg1 08:50 Initial lab(s) drawn, by nm, sent to lab. Inserted saline lock: 22 gauge in right vg1 antecubital area, using aseptic technique. Blood collected. 09:09 Patient has correct armband on for positive identification. Bed in low position. Call vg1 light in reach. Side rails up X2. 09:10 Arm band placed on. vg1 09:39 XRAY Chest (1 view) In Process Unspecified. EDMS 09:59 US Extremity Venous W Compression Yoshi In Process Unspecified. EDMS 10:09 Trena Novoa MD is Hospitalizing Provider. evan 10:24 CT Chest For PE Angio In Process Unspecified. EDMS 10:55 IV discontinued, intact, bleeding controlled, No redness/swelling at site. Pressure vg1 dressing applied, IV inflitrated. 11:05 Inserted saline lock: 22 gauge in left antecubital area, using aseptic technique. vg1 05/04 06:55 Primary Nurse role handed off by Justine Lomas RN eb 20:02 Candice Ocampo, ANTHONY is Primary Nurse. kd3 Administered Medications: 05/03 09:23 Drug: Pepcid (famotidine) 20 mg Route: IVP; Site: right antecubital; vg1 11:17 Follow up: Response: No adverse reaction vg1 11:10 Drug: Zithromax (azithromycin) 500 mg Route: IVPB; Infused Over: 1 hrs; Site: left vg1 antecubital; 12:15 Follow up: IV Status: Completed infusion; IV Intake: 250ml vg1 11:14 Drug: Lovenox (enoxaparin) 40 mg Route: Sub-Q; Site: right lower abdomen; vg1 12:15 Follow up: Response: No adverse reaction vg1 13:59 Drug: Rocephin (cefTRIAXone) 1 grams Route: IV; Rate: per protocol; Site: left vg1 antecubital; 21:24 Follow up: IV Status: Completed infusion kd3 Intake: 12:15 IV: 250ml; Total: 250ml. vg1 Outcome: 10:10 Decision to Hospitalize by Provider. [facility] 05/04 22:48 Patient left the ED. mw Signatures: Dispatcher [employer] EDMS Chuyita Corbin RN RN mw Anderson, Corey, MD MD cha Martinez, Amelia as Leal, Jahala, RN RN jl7 Susi Parker Victoria RN RN vg1 Candice Ocampo RN RN kd3 Nahomi-StagerElsa RN RN rose
--- NOTE | 2021-05-03 10:11 | EDPHYS ---
Physician Documentation [facility] Name: Cristi Kirk Sr Age: 89 yrs Sex: Male : 1930 Arrival Date: 05/03/2021 Time: 08:03 Bed 18 Private MD: ED Physician Ruslan Valverde HPI: 05/03 10:03 This 89 yrs old Male presents to ER via EMS with complaints of covid+. evan 10:03 The patient has shortness of breath at rest, with light activity. Onset: The evan symptoms/episode began/occurred 3 day(s) ago. Duration: The symptoms are continuous, and are steadily getting worse. The patient's shortness of breath is aggravated by coughing, light activity, prone position, is alleviated by elevating head, application of supplemental oxygen. covid , sob , weak. Associated signs and symptoms: Pertinent positives: non-productive cough. Historical: - Allergies: 08:32 No Known Allergies; jl7 - Home Meds: 08:24 memantine Oral [Active]; rose - PMHx: 08:24 Alzheimer's disease; Kidney stones; UTI; rose - PSHx: 08:24 Appendectomy; Colon; Stented artery; rose - Social history:: Smoking status: Patient denies any tobacco usage or history of. - Family history:: not pertinent. ROS: 10:03 Constitutional: Negative for fever, chills, and weight loss, Eyes: Negative for injury, evan pain, redness, and discharge, ENT: Negative for injury, pain, and discharge, Neck: Negative for injury, pain, and swelling, Cardiovascular: Negative for chest pain, palpitations, and edema, Abdomen/GI: Negative for abdominal pain, nausea, vomiting, diarrhea, and constipation, Back: Negative for injury and pain, : Negative for injury, bleeding, discharge, and swelling, MS/Extremity: Negative for injury and deformity, Skin: Negative for injury, rash, and discoloration, Allergy/Immunology: Negative for hives, rash, and allergies, Endocrine: Negative for neck swelling, polydipsia, polyuria, polyphagia, and marked weight changes, Hematologic/Lymphatic: Negative for swollen nodes, abnormal bleeding, and unusual bruising. 10:03 Respiratory: Positive for cough, shortness of breath. 10:03 Neuro: Positive for dizziness, weakness. Exam: 10:03 Constitutional: This is a well developed, well nourished patient who is awake, alert, evan and in no acute distress. Head/Face: Normocephalic, atraumatic. Eyes: Pupils equal round and reactive to light, extra-ocular motions intact. Lids and lashes normal. Conjunctiva and sclera are non-icteric and not injected. Cornea within normal limits. Periorbital areas with no swelling, redness, or edema. ENT: Nares patent. No nasal discharge, no septal abnormalities noted. Tympanic membranes are normal and external auditory canals are clear. Oropharynx with no redness, swelling, or masses, exudates, or evidence of obstruction, uvula midline. Mucous membranes moist. Neck: Trachea midline, no thyromegaly or masses palpated, and no cervical lymphadenopathy. Supple, full range of motion without nuchal rigidity, or vertebral point tenderness. No Meningismus. Chest/axilla: Normal chest wall appearance and motion. Nontender with no deformity. No lesions are appreciated. Cardiovascular: Regular rate and rhythm with a normal S1 and S2. No gallops, murmurs, or rubs. Normal PMI, no JVD. No pulse deficits. Abdomen/GI: Soft, non-tender, with normal bowel sounds. No distension or tympany. No guarding or rebound. No evidence of tenderness throughout. Back: No spinal tenderness. No costovertebral tenderness. Full range of motion. Skin: Warm, dry with normal turgor. Normal color with no rashes, no lesions, and no evidence of cellulitis. MS/ Extremity: Pulses equal, no cyanosis. Neurovascular intact. Full, normal range of motion. Neuro: Awake and alert, GCS 15, oriented to person, place, time, and situation. Cranial nerves II-XII grossly intact. Motor strength 5/5 in all extremities. Sensory grossly intact. Cerebellar exam normal. Normal gait. Psych: Awake, alert, with orientation to person, place and time. Behavior, mood, and affect are within normal limits. 10:03 ECG was reviewed by the Attending Physician. 10:03 Respiratory: the patient does not display signs of respiratory distress, Respirations: normal, no acute changes, labored breathing, is not present, Breath sounds: decreased breath sounds, that are mild, are heard in the left posterior upper lobe, left posterior lower lobe, right posterior middle lobe and right posterior lower lobe. Vital Signs: 08:23 BP 112 / 53; Pulse 96; Resp 18; Temp 98.6(TE); Pulse Ox 96% on R/A; Weight 81.65 kg; rose Height 5 ft. 9 in. (175.26 cm); 08:35 BP 121 / 70; Pulse 88; Resp 19; Pulse Ox 95% ; vg1 09:30 BP 116 / 63; Pulse 89; Resp 19; Pulse Ox 95% on R/A; vg1 10:57 BP 133 / 62; Pulse 83; Resp 15; Pulse Ox 97% on R/A; vg1 11:00 BP 123 / 60; Pulse 76; Resp 17; Pulse Ox 98% on R/A; vg1 21:25 BP 117 / 64; Pulse 80; Resp 18; Pulse Ox 100% ; kd3 08:23 Body Mass Index 26.58 (81.65 kg, 175.26 cm) rose MDM: 08:07 Patient medically screened. [facility] 10:07 Differential diagnosis: asthma, Bronchitis viral Infection, bacterial infection, URI, evan bronchitis, pneumonia pneumonia, pulmonary edema, Pulmonary Embolism reactive airway disease. Antibiotic administration: Rocephin and Zithromax given. Differential Diagnosis altered mental status, flu. The patient's Wells Deep Vein Thrombosis Score was calculated as follows: Total Score: 0-2 Pts- Low Risk. The patient's pulmonary embolism risk score was calculated as follows: Total Score: 0-2 points. This patient was found to be at low risk for a pulmonary embolism by using the Well's assessment criteria. Immunization status: Pneumococcal vaccine: Influenza vaccine: Data reviewed: vital signs, nurses notes, lab test result(s), EKG, radiologic studies, CT scan, doppler, plain films. Data interpreted: bus driver/monitor: rate is 88 beats/min, rhythm is regular, Pulse oximetry: on room air is 91 %. Test interpretation: by ED physician or midlevel provider: ECG, plain radiologic studies. Counseling: I had a detailed discussion with the patient and/or guardian regarding: the historical points, exam findings, and any diagnostic results supporting the discharge/admit diagnosis, lab results, radiology results, the need for further work-up and treatment in the hospital. 05/03 08:12 Order name: Basic Metabolic Panel; Complete Time: 10:02 [facility] 05/03 08:12 Order name: CBC with Diff; Complete Time: 09:27 [facility] 05/03 08:12 Order name: LFT's; Complete Time: 10:02 [facility] 05/03 08:12 Order name: Magnesium; Complete Time: 10:02 [facility] 05/03 08:12 Order name: NT PRO-BNP; Complete Time: 10:02 [facility] 05/03 08:12 Order name: PT-INR; Complete Time: 09:27 [facility] 05/03 08:12 Order name: Troponin (emerg Dept Use Only); Complete Time: 10:02 [facility] 05/03 08:12 Order name: Ferritin; Complete Time: 10:02 [facility] 05/03 08:12 Order name: CRP; Complete Time: 10:02 [facility] 05/03 08:12 Order name: D-Dimer; Complete Time: 09:27 [facility] 05/03 13:28 Order name: Urine Dipstick-Ancillary EDLA 05/03 13:33 Order name: C-Reactive Protein EDLA 05/03 13:33 Order name: C-Reactive Protein EDLA 05/03 13:33 Order name: CBC with Automated Diff EDMS 05/03 08:12 Order name: XRAY Chest (1 view) [facility] 05/03 08:12 Order name: EKG; Complete Time: 08:13 [facility] 05/03 09:28 Order name: US Extremity Venous W Compression Yoshi [facility] 05/03 09:28 Order name: CT Chest For PE Angio [facility] 05/03 13:33 Order name: CBC with Automated Diff EDMS 05/03 13:33 Order name: Comprehensive Metabolic Panel EDMS 05/03 13:33 Order name: Comprehensive Metabolic Panel EDMS 05/03 13:33 Order name: Ferritin EDMS 05/03 13:33 Order name: Ferritin EDMS 05/03 13:33 Order name: Lipid Profile EDMS 05/03 13:33 Order name: Lipid Profile EDMS 05/03 13:33 Order name: Urine Culture [facility] 05/03 08:12 Order name: Cardiac monitoring; Complete Time: 09:06 [facility] 05/03 08:12 Order name: EKG - Nurse/Tech; Complete Time: 09:06 [facility] 05/03 08:12 Order name: IV Saline Lock; Complete Time: 09:06 [facility] 05/03 08:12 Order name: Labs collected and sent; Complete Time: 09:07 [facility] 05/03 08:12 Order name: O2 Per Protocol; Complete Time: 09:07 [facility] 05/03 08:12 Order name: O2 Sat Monitoring; Complete Time: 09: [facility] 05/03 08:12 Order name: Urine Dipstick-Ancillary (obtain specimen); Complete Time: 13:27 [facility] 05/03 13:33 Order name: Heart Healthy EDLA EC:03 Rate is 91 beats/min. QRS [place] is Normal. NC interval is normal. QRS interval is evan normal. QT interval is normal. No Q waves. T waves are Normal. No ST changes noted. Clinical impression: NSR w/ Non-specific ST/T Changes and No evidence of ischemia. Interpreted by me. Reviewed by me. Administered Medications: 09:23 Drug: Pepcid (famotidine) 20 mg Route: IVP; Site: right antecubital; vg1 11:17 Follow up: Response: No adverse reaction vg1 11:10 Drug: Zithromax (azithromycin) 500 mg Route: IVPB; Infused Over: 1 hrs; Site: left vg1 antecubital; 12:15 Follow up: IV Status: Completed infusion; IV Intake: 250ml vg1 11:14 Drug: Lovenox (enoxaparin) 40 mg Route: Sub-Q; Site: right lower abdomen; vg1 12:15 Follow up: Response: No adverse reaction vg1 13:59 Drug: Rocephin (cefTRIAXone) 1 grams Route: IV; Rate: per protocol; Site: left vg1 antecubital; 21:24 Follow up: IV Status: Completed infusion kd3 Disposition Summary: 05/03/21 10:10 Hospitalization Ordered Hospitalization Status: Observation evan Provider: Trena Novoa cha Condition: Stable evan Problem: new evan Symptoms: have improved evan Bed/Room Type: Standard evan Location: Telemetry/MedSurg (Inpatient)(05/04/21 20:04) mw Room Assignment: 407(05/04/21 20:04) mw Diagnosis - Hypoxemia evan - Coronavirus infection, unspecified evan - Pneumonia due to SARS-associated coronavirus evan - Weakness evan - Alzheimer's disease, unspecified evan - UTI/ Urinary tract infection, site not specified evan Forms: - Medication Reconciliation Form evan - SBAR form evan Signatures: Dispatcher [employer] EDLA Chuyita Corbin RN Ruslan Smith MD MD cha Leal, Jahala RN RN jl7 Justine Lomas, RN RN vg1 Russr, Elsa RN RN Candice Frias RN kd3 Corrections: (The following items were deleted from the chart) 21:52 10:10 Telemetry/MedSurg (observation) evan mw 21:52 10:10 evan mw 05/04 20:04 05/03 21:52 [facility] mw mw 05/04 20:04 05/03 21:52 ERHOLD- mw mw
--- NOTE | 2021-05-03 10:15 | RAD REPORT ---
EXAM DESCRIPTION: RAD - Chest Single View - 05/03/2021 9:39 am CLINICAL HISTORY: COUGH Chest pain. COMPARISON: Chest Pa And Lat (2 Views) dated 05/02/2021; Chest Pa And Lat (2 Views) dated 04/07/2020; Chest Single View dated 12/24/2018; Chest Single View dated 06/01/2018 FINDINGS: Portable technique limits examination quality. Mild bilateral interstitial lung opacities are present, greater on the left, likely representing a vi ral infection. The heart is mildly prominent in size. No displaced fractures.Aortic atherosclerosis.
[2021-05-03] MEDS ORDERED: NA CHLORIDE 0.9% 250 ML ONE (10:18)
[2021-05-03] MEDS ORDERED: AZITHROMYCIN 500 MG INJ IVPB ONE (10:18)
[2021-05-03] MEDS ORDERED: ENOXAPARIN 40 MG/0.4 ML SQ ONE (10:19)
--- NOTE | 2021-05-03 10:28 | RAD REPORT ---
EXAM DESCRIPTION: US - Extrem Venous W Compress Yoshi - 05/03/2021 10:13 am CLINICAL HISTORY: Pain;Swelling Bilateral leg edema and swelling. COMPARISON: No comparisons TECHNIQUE: Real-time sonographic interrogation of the left and right lower extremity deep venous sys tems was performed. FINDINGS: Normal compressibility, flow augmentation, phasic flow and spontaneous flow is identified in both the left and right lower extremity deep venous systems. IMPRESSION: No sonographic evidence of left or right lower extremity deep venous thrombosis.
--- NOTE | 2021-05-03 10:48 | RAD REPORT ---
EXAM DESCRIPTION: CT - Chest For Pe Angio - 05/03/2021 10:24 am CLINICAL HISTORY: Chest pain. COUGH COMPARISON: THORAX W WO CONT dated 01/14/2013 TECHNIQUE: CT angiogram of the pulmonary arteries was performed with MIP. All CT scans are performed using dose optimization technique as appropriate and may include automated exposure control or mA/KV adjustment according to patient size. FINDINGS: No evidence of pulmonary thromboembolism. No acute aortic finding demonstrated. The lungs are mildly emphysematous but clear. No significant pericardial or pleural fluid. No concerning bony finding. IMPRESSION: No evidence of pulmonary thromboembolism. Mild COPD.
[2021-05-03] MEDS ORDERED: ONDANSETRON 4 MG/2 ML VIAL IV PRN (13:28)
[2021-05-03] MEDS ORDERED: MORPHINE 2 MG/ML SYR IV PRN (13:28)
[2021-05-03 13:29] LABS: Urine Blood 3+ (Negative); Urine Glucose Negative (Negative); Urine Protein Trace (Negative); Urine Specific Gravity 1.025 (1.005-1.030)
[2021-05-03] MEDS ORDERED: CEFTRIAXONE 1000 MG/VIAL ONE (13:48)
[2021-05-03 16:29] VITALS: BMI 26.6
[2021-05-03] MEDS: METHYLPREDNISOLONE 40 MG INJ IV SCH (17:00)
[2021-05-03] MEDS ORDERED: METHYLPREDNISOLONE 40 MG INJ ONE ×2 (17:10→23:45)
--- NOTE | 2021-05-03 17:10 | P.HP ---
Certification for Inpatient Patient admitted to: Inpatient With expected LOS: >2 Midnights Patient will require the following post-hospital care: None Practitioner: I am a practitioner with admitting privileges, knowledge of patient current condition, hospital course, and medical plan of care. Services: Services provided to patient in accordance with Admission requirements found in Title 42 Section 412.3 of the Code of Federal Regulations Patient History Date of Service: 05/03/21 Reason for admission: Shortness of breath History of Present Illness: Patient is a 89-year-old gentleman who came to the hospital with difficulty breathing. Patient was has a history of COVID-19 pneumonia. Patient was diagnose yesterday in the emergency room. Patient clinically has been doing worse so patient came to the hospital for further evaluation. Patient is has some generalized weakness and nonproductive cough. Patient clinical symptoms are worsening. Patient be admitted for further evaluation. Patient's CT scan was negative. Patient venous Doppler were negative. Allergies No Known Allergies Allergy (Verified 04/07/20 17:04) Home Medications: Memantine HCl [Namenda*] 5 mg PO DAILY 05/03/21 - Past Medical/Surgical History Has patient received pneumonia vaccine in the past: Yes Diabetic: No -: COPD -: Dyslipidemia -: Occlusion of rt carotid -: Appendectomy -: Partial colon resection - Family History Father Family History: Reviewed- Non-Contributory - Social History Smoking Status: Former smoker Alcohol use: No CD- Drugs: No Caffeine use: No Place of Residence: Home Review of Systems 10-point ROS is otherwise unremarkable Physical Examination - Vital Signs Temperature: 98.8 F Blood Pressure: 118/69 Pulse: 81 Respirations: 19 Pulse Ox (%): 97 - Physical Exam General: Alert, In no apparent distress, Demented, Confused HEENT: Atraumatic, PERRLA, Mucous membr. moist/pink, EOMI, Sclerae nonicteric Neck: Supple, 2+ carotid pulse no bruit, No LAD, Without JVD or thyroid abnormality Respiratory: Diminished, Expiratory wheezes Cardiovascular: Regular rate/rhythm, Normal S1 S2, No murmurs Gastrointestinal: Normal bowel sounds, Soft and benign, Non-distended, No tenderness Musculoskeletal: No clubbing, No swelling, No tenderness Integumentary: No rashes Neurological: Normal gait, Normal speech, Normal strength at 5/5 x4 extr, Normal tone, Sensation intact, Cranial nerves 3-12 intact, Normal affect Lymphatics: No axilla or inguinal lymphadenopathy - Studies Laboratory Data (last 24 hrs) 05/03/21 08:50: PT 11.4, INR 0.99 05/03/21 08:50: WBC 7.00, Hgb 13.9, Hct 41.8, Plt Count 232 05/03/21 08:50: Sodium 135 L, Potassium 3.8, BUN 19 H, Creatinine 1.06, Glucose 117 H, Magnesium 2.4, Total Bilirubin 0.3, AST 24, ALT 18, Alkaline Phosphatase 85 Assessment & Plan - Problems (Diagnosis) (1) Pneumonia due to COVID-19 virus Current Visit: Yes Status: Acute (2) Chronic obstructive lung disease COPD Current Visit: No Status: Chronic (3) Alzheimer's dementia Current Visit: Yes Status: Acute (4) COPD with acute exacerbation Current Visit: Yes Status: Acute - Plan 1. Continue with IV steroids 2. Monitor inflammatory markers 3. Repeat chest x-ray if symptoms are progressively worsening 4. O2 per protocol 5. Pulmonary consultation 6. Continue with albuterol inhaler therapy; also supportive care 7. Monitor LFTs 8. Continue monitoring neuro checks. 9. GI and DVT prophylaxis Discharge Plan: Home Plan to discharge in: Greater than 2 days - Advance Directives Does patient have a Living Will: No Does patient have a Durable POA for Healthcare: No - Code Status/Comfort Care Code Status Assessed: Yes Code Status: Full Code Critical Care: No Time Spent Managing PTS Care (In Minutes): 45
[2021-05-03] MEDS ORDERED: INFLUENZA VACCINE (for 6+ mo) 0.5 ML DOSE IMVAC ONE ×2 (18:00→23:46)
[2021-05-03] MEDS: APIXABAN 5 MG TABLET PO SCH (21:00)
[2021-05-03] MEDS ORDERED: APIXABAN 5 MG TABLET ONE (23:45)
[2021-05-04] MEDS: METHYLPREDNISOLONE 40 MG INJ IV SCH ×3 (01:00→16:40)
[2021-05-04 05:00] LABS: Absolute Lymphocytes (CBC) 1.7 K/uL (0.7-4.9); Hematocrit 41.7 % (39.6-49.0); Lymphocytes % 13.9 % (15.3-44.8); MPV 7.5 fL (7.6-11.3); RBC Red Blood Cell Count 4.96 M/uL (4.33-5.43)
[2021-05-04 05:47] LABS: ALT/SGPT 19 U/L (12-78); AST/SGOT 26 U/L (15-37); Albumin 3.1 g/dL (3.4-5.0); Alkaline Phosphatase 79 U/L (45-117); BUN Blood Urea Nitrogen 15 mg/dL (7-18); Bicarbonate 24 mmol/L (21-32); Bilirubin Total 0.3 mg/dL (0.2-1.0); Ferritin 375.8 ng/mL (26-388); Glucose Level 142 mg/dL (74-106); HDL Cholesterol 53 mg/dL (40-60); LDL Cholesterol, Calculated 108 (<130); Potassium 3.9 mmol/L (3.5-5.1); Protein, Total 7.5 g/dL (6.4-8.2); Sodium Level 133 mmol/L (136-145)
[2021-05-04] MEDS: APIXABAN 5 MG TABLET PO SCH ×2 (09:00→20:11)
[2021-05-04] MEDS ORDERED: METHYLPREDNISOLONE 40 MG INJ ONE ×3 (09:32→20:05)
[2021-05-04] MEDS ORDERED: FAMOTIDINE 20 MG TAB ONE (09:32)
[2021-05-04] MEDS ORDERED: APIXABAN 5 MG TABLET ONE ×2 (09:32→20:05)
[2021-05-04] MEDS: FAMOTIDINE 20 MG TAB PO SCH (09:35)
[2021-05-05] MEDS: METHYLPREDNISOLONE 40 MG INJ IV SCH ×3 (00:58→17:20)
[2021-05-05] MEDS: CEFTRIAXONE 1,000 MG in NA CHLORIDE 0.9% 50 ML IVPB SCH ×2 (00:58→08:02)
[2021-05-05] MEDS ORDERED: CEFTRIAXONE 1000 MG/VIAL ONE (07:32)
[2021-05-05] MEDS: APIXABAN 5 MG TABLET PO SCH ×2 (08:03→21:01)
[2021-05-05] MEDS: FAMOTIDINE 20 MG TAB PO SCH (08:03)
--- NOTE | 2021-05-05 14:34 | P.PN ---
Subjective Date of Service: 05/04/21 Patient continues to improve. Patient clinical symptoms are improving. Review of Systems 10-point ROS is otherwise unremarkable Physical Examination - Vital Signs Temperature: 98.8 F Blood Pressure: 118/69 Pulse: 81 Respirations: 19 Pulse Ox (%): 97 - Physical Exam General: Alert, In no apparent distress, Demented, Confused Respiratory: Diminished Cardiovascular: Regular rate/rhythm, Normal S1 S2, No murmurs Gastrointestinal: Normal bowel sounds, Soft and benign, Non-distended, No tenderness Musculoskeletal: No clubbing, No swelling, No tenderness Neurological: Sensation intact, Cranial nerves 3-12 intact - Studies Medications List Reviewed: Yes Assessment & Plan - Problems (Diagnosis) (1) Pneumonia due to COVID-19 virus Current Visit: Yes Status: Acute (2) Chronic obstructive lung disease COPD Current Visit: No Status: Chronic (3) Alzheimer's dementia Current Visit: Yes Status: Acute (4) COPD with acute exacerbation Current Visit: Yes Status: Acute - Plan Continue with plan of care as mentioned below: 1. Continue with IV steroids 2. Monitor inflammatory markers 3. Chest x-ray in a.m. 4. O2 per protocol 5. Pulmonary consultation if symptoms worsen 6. Continue with albuterol inhaler therapy; also supportive care 7. jail facility placement per family recommendation; also DNR 8. Physical therapy evaluation 9. GI and DVT prophylaxis Discharge Plan: Home Plan to discharge in: Greater than 2 days - Advance Directives Does patient have a Living Will: No Does patient have a Durable POA for Healthcare: No - Code Status/Comfort Care Code Status: Full Code Critical Care: No Time Spent Managing PTS Care (In Minutes): 35
--- NOTE | 2021-05-05 14:35 | P.PN ---
Date of Service: 05/05/21 Subjective Patient denies any complaints. Patient tolerating his diet. Continue working with physical therapy. Mentation is improved. Review of Systems 10-point ROS is otherwise unremarkable Physical Examination - Vital Signs Reviewed - Physical Exam General: Alert, In no apparent distress, Demented, oriented to person and place but not to time Respiratory: Clear bilaterally Cardiovascular: Regular rate/rhythm, Normal S1 S2, No murmurs Gastrointestinal: Normal bowel sounds, Soft and benign, Non-distended, No tenderness Musculoskeletal: No clubbing, No swelling, No tenderness Neurological: No focal deficits - Studies Medications List Reviewed: Yes Assessment & Plan - Problems (Diagnosis) (1) Pneumonia due to COVID-19 virus Current Visit: Yes Status: Acute (2) COPD with acute exacerbation Current Visit: Yes Status: Acute (3) Alzheimer's dementia Current Visit: Yes Status: Acute - Plan Continue with plan of care as mentioned below: 1. Changed to oral steroids 2. Monitor labs 3. Repeat Chest x-ray in a.m. 4. O2 per protocol 5. Continue with neb treatments 6. Continue with medications for dementia 7. [facility] facility placement per family recommendation; also DNR 8. Physical therapy evaluation pending 9. GI and DVT prophylaxis
[2021-05-05] MEDS: MEMANTINE HCL 10 MG TABLET PO SCH (21:32)
[2021-05-06] MEDS: METHYLPREDNISOLONE 40 MG INJ IV SCH ×3 (00:44→17:03)
[2021-05-06 06:48] LABS: Absolute Lymphocytes (CBC) 2.1 K/uL (0.7-4.9); Hematocrit 42.6 % (39.6-49.0); Lymphocytes % 19.4 % (15.3-44.8); RBC Red Blood Cell Count 5.04 M/uL (4.33-5.43)
[2021-05-06] MEDS ORDERED: CEFTRIAXONE 1000 MG/VIAL ONE (07:12)
[2021-05-06 07:16] LABS: Albumin 2.8 g/dL (3.4-5.0); Bilirubin Total 0.3 mg/dL (0.2-1.0); Magnesium 2.6 mg/dL (1.8-2.4); Potassium 3.6 mmol/L (3.5-5.1)
--- NOTE | 2021-05-06 07:33 | RAD REPORT ---
EXAM DESCRIPTION: RAD - Chest Single View - 05/06/2021 5:53 am CLINICAL HISTORY: pneumonia COMPARISON: Chest Single View dated 05/03/2021; Chest Pa And Lat (2 Views) dated 05/02/2021; Chest P a And Lat (2 Views) dated 04/07/2020; Chest Single View dated 12/24/2018; Chest For Pe Angio dated 04/06 FINDINGS: Lines: None. Lungs: No evidence of edema or pneumonia. Pleural: No significant pleural effusions or pneumothorax. Cardiac: The heart size is within normal limits. Atherosclerosis. Bones: No acute fractures. Other: IMPRESSION: No acute cardiopulmonary disease.
[2021-05-06] MEDS ORDERED: NA CHLORIDE 0.9% 50 ML ONE (07:34)
[2021-05-06] MEDS: APIXABAN 5 MG TABLET PO SCH ×2 (08:47→19:51)
[2021-05-06] MEDS: FAMOTIDINE 20 MG TAB PO SCH (08:47)
[2021-05-06] MEDS: MEMANTINE HCL 10 MG TABLET PO SCH (08:47)
[2021-05-06] MEDS: CEFTRIAXONE 1,000 MG in NA CHLORIDE 0.9% 50 ML IVPB SCH (08:47)
--- NOTE | 2021-05-06 18:35 | P.PN ---
Date of Service: 05/06/21 Subjective Patient is doing well. Patient feels better. Awaiting for snf facility placement per family request. Review of Systems 10-point ROS is otherwise unremarkable Physical Examination - Vital Signs Reviewed - Physical Exam General: Alert, In no apparent distress, demented, oriented to person and place but not to time Respiratory: Clear bilaterally Cardiovascular: Regular rate/rhythm, Normal S1 S2, No murmurs Gastrointestinal: Normal bowel sounds, Soft and benign, Non-distended, No tenderness Musculoskeletal: No clubbing, No swelling, No tenderness Neurological: No focal deficits - Studies Medications List Reviewed: Yes Assessment & Plan - Problems (Diagnosis) (1) Pneumonia due to COVID-19 virus Current Visit: Yes Status: Acute (2) COPD with acute exacerbation Current Visit: Yes Status: Acute (3) Alzheimer's dementia Current Visit: Yes Status: Acute - Plan Continue with plan of care as mentioned below: 1. Continue with oral steroids 2. Monitor labs 3. CXR in AM 4. O2 per protocol 5. Continue with neb treatments 6. Continue with medications for dementia 7. longterm facility placement per family recommendation; also DNR 8. Physical therapy evaluation pending 9. GI and DVT prophylaxis
[2021-05-06] MEDS ORDERED: CEFDINIR 300 MG CAP PO SCH (21:00)
[2021-05-07 05:39] LABS: Absolute Lymphocytes (CBC) 2.5 K/uL (0.7-4.9); Hematocrit 43.5 % (39.6-49.0); Lymphocytes % 22.1 % (15.3-44.8); RBC Red Blood Cell Count 5.14 M/uL (4.33-5.43)
[2021-05-07 06:52] LABS: Magnesium 2.6 mg/dL (1.8-2.4); Potassium 4.1 mmol/L (3.5-5.1)
[2021-05-07] MEDS: predniSONE 20 MG TAB PO SCH (09:12)
[2021-05-07] MEDS: MEMANTINE HCL 10 MG TABLET PO SCH (09:12)
[2021-05-07] MEDS: APIXABAN 5 MG TABLET PO SCH (09:12)
[2021-05-07] MEDS: FAMOTIDINE 20 MG TAB PO SCH (09:12)
[2021-05-07] MEDS: CEFDINIR 300 MG CAP PO SCH ×2 (09:47→21:07)
[2021-05-07] MEDS ORDERED: ALBUTEROL 2.5 MG/3 ML NEB SOL NEB PRN (14:25)
--- NOTE | 2021-05-07 14:26 | P.PN ---
Subjective Date of Service: 05/07/21 Chief Complaint: Shortness of breath Subjective: Improving Physical Examination - Vital Signs Temperature: 97.0 F Blood Pressure: 113/93 Pulse: 58 Respirations: 18 Pulse Ox (%): 98 - Studies Medications List Reviewed: Yes Assessment & Plan Discharge Plan: Other (SNF) Plan to discharge in: 24 Hours - Code Status/Comfort Care Code Status Assessed: Yes (DNR) Physician Review Additional Text: COVID: Positive CT Chest: COMPARISON: THORAX W WO CONT dated 01/14/2013 TECHNIQUE: CT angiogram of the pulmonary arteries was performed with MIP. All CT scans are performed using dose optimization technique as appropriate and may include automated exposure control or mA/KV adjustment according to patient size. FINDINGS: No evidence of pulmonary thromboembolism. No acute aortic finding demonstrated. The lungs are mildly emphysematous but clear. No significant pericardial or pleural fluid. No concerning bony finding. IMPRESSION: No evidence of pulmonary thromboembolism. Mild COPD. Follow up CXR: COMPARISON: Chest Single View dated 05/03/2021; Chest Pa And Lat (2 Views) dated 05/02/2021; Chest Pa And Lat (2 Views) dated 04/07/2020; Chest Single View dated 12/24/2018; Chest For Pe Angio dated 05/03/2021 FINDINGS: Lines: None. Lungs: No evidence of edema or pneumonia. Pleural: No significant pleural effusions or pneumothorax. Cardiac: The heart size is within normal limits. Atherosclerosis. Bones: No acute fractures. IMPRESSION: No acute cardiopulmonary disease. Venous doppler: COMPARISON: No comparisons TECHNIQUE: Real-time sonographic interrogation of the left and right lower extremity deep venous systems was performed. FINDINGS: Normal compressibility, flow augmentation, phasic flow and spontaneous flow is identified in both the left and right lower extremity deep venous systems. IMPRESSION: No sonographic evidence of left or right lower extremity deep venous thrombosis. Physical Exam: GENERAL: Patient with dementia VITAL SIGNS: Reviewed HEENT: Neck supple LUNGS: Clear to auscultation. No crackles or wheezes are heard. Patient on room air HEART: Regular rate and rhythm, no appreciable gallops, rubs, murmurs or extra heart sounds ABDOMEN: Soft, nontender, and nondistended. Positive bowel sounds. No hepatosplenomegaly was noted. EXTREMITIES: Without any cyanosis, clubbing, rash, lesions or peripheral edema. NEUROLOGIC: Patient with dementia Impression: COVID-19 positive with Acute Pneumonia COPD UTI with urine culture positive for Klebsiella pneumoniae Dementia Plan: COVID-19 positive with Acute Pneumonia: Patient remains on room air. Continue with prednisone taper. Patient awaiting approval for skilled placement. Case discussed in detail with daughter who has medical power of attorney general. Advance care directives also addressed. Patient is DNR. COPD: Continue with COPD treatment. UTI with urine culture positive for Klebsiella pneumoniae: Continue with cefdinir. Patient to be treated for 7 days. Dementia: Continue Namenda Code Status: This was readdressed with daughter who has medical power attorney general. Patient is DNR. DVT prophylaxis: Lovenox Advanced Care Planning-30 minutes: We will pursue skilled placement. Daughter would consider long-term care if this is required in the future. Time Spent Managing Pts Care (In Minutes): 55
[2021-05-07] MEDS: ENOXAPARIN 40 MG/0.4 ML SQ SCH (17:07)
[2021-05-07] MEDS: ACETAMINOPHEN 500 MG TAB PO PRN (21:07)
[2021-05-07] MEDS: ARFORMOTEROL TARTRATE 15 MCG/2 ML VIAL.NEB NEB SCH (21:15)
--- NOTE | 2021-05-08 06:07 | P.PN ---
Subjective Date of Service: 05/08/21 Chief Complaint: Shortness of breath Subjective: Doing well, Demented Physical Examination - Vital Signs Temperature: 96.9 F Blood Pressure: 159/75 Pulse: 60 Respirations: 19 Pulse Ox (%): 97 - Studies Medications List Reviewed: Yes Assessment & Plan Discharge Plan: Other (SNF-[facility]) Plan to discharge in: 24 Hours Physician Review Additional Text: COVID: Positive CT Chest: COMPARISON: THORAX W WO CONT dated 01/14/2013 TECHNIQUE: CT angiogram of the pulmonary arteries was performed with MIP. All CT scans are performed using dose optimization technique as appropriate and may include automated exposure control or mA/KV adjustment according to patient size. FINDINGS: No evidence of pulmonary thromboembolism. No acute aortic finding demonstrated. The lungs are mildly emphysematous but clear. No significant pericardial or pleural fluid. No concerning bony finding. IMPRESSION: No evidence of pulmonary thromboembolism. Mild COPD. Follow up CXR: COMPARISON: Chest Single View dated 05/03/2021; Chest Pa And Lat (2 Views) dated 05/02/2021; Chest Pa And Lat (2 Views) dated 04/07/2020; Chest Single View dated 12/24/2018; Chest For Pe Angio dated 05/03/2021 FINDINGS: Lines: None. Lungs: No evidence of edema or pneumonia. Pleural: No significant pleural effusions or pneumothorax. Cardiac: The heart size is within normal limits. Atherosclerosis. Bones: No acute fractures. IMPRESSION: No acute cardiopulmonary disease. Venous doppler: COMPARISON: No comparisons TECHNIQUE: Real-time sonographic interrogation of the left and right lower extremity deep venous systems was performed. FINDINGS: Normal compressibility, flow augmentation, phasic flow and spontaneous flow is identified in both the left and right lower extremity deep venous systems. IMPRESSION: No sonographic evidence of left or right lower extremity deep venous thrombosis. Physical Exam: GENERAL: Patient with dementia. Overall stable. Patient able to follow commands VITAL SIGNS: Reviewed HEENT: Neck supple LUNGS: Clear to auscultation. No crackles or wheezes are heard. Patient on room air HEART: Regular rate and rhythm, no appreciable gallops, rubs, murmurs or extra heart sounds ABDOMEN: Soft, nontender, and nondistended. Positive bowel sounds. No hepatosplenomegaly was noted. EXTREMITIES: Without any cyanosis, clubbing, rash, lesions or peripheral edema. NEUROLOGIC: Patient with dementia Impression: COVID-19 positive with Acute Pneumonia COPD UTI with urine culture positive for Klebsiella pneumoniae Dementia Plan: COVID-19 positive with Acute Pneumonia: Patient remains on room air. Continue with prednisone taper. Patient awaiting approval for skilled placement. Case discussed in detail with daughter who has medical power of employee benefits attorney. Advance care directives also addressed. Patient is DNR. COPD: Continue with COPD treatment. UTI with urine culture positive for Klebsiella pneumoniae: Continue with cefdinir. Patient to be treated for 7 days. Dementia: Continue Namenda Code Status: This was readdressed with daughter who has medical power employee benefits attorney. Patient is DNR. DVT prophylaxis: Lovenox Advanced Care Planning-30 minutes: We will pursue skilled placement. Daughter would consider long-term care if this is required in the future. Time Spent Managing Pts Care (In Minutes): 55
[2021-05-08] MEDS: predniSONE 20 MG TAB PO SCH (08:52)
[2021-05-08] MEDS: MEMANTINE HCL 10 MG TABLET PO SCH ×2 (08:52→20:36)
[2021-05-08] MEDS: FAMOTIDINE 20 MG TAB PO SCH (08:52)
[2021-05-08] MEDS: CEFDINIR 300 MG CAP PO SCH ×2 (08:52→20:36)
[2021-05-08] MEDS: ARFORMOTEROL TARTRATE 15 MCG/2 ML VIAL.NEB NEB SCH ×2 (08:58→20:00)
[2021-05-08] MEDS: ENOXAPARIN 40 MG/0.4 ML SQ SCH (16:09)
[2021-05-08] MEDS: IPRATROPIUM BROM 0.5MG/2.5ML NEB PRN (20:02)
--- NOTE | 2021-05-09 06:12 | P.PN ---
Subjective Date of Service: 05/09/21 Chief Complaint: Shortness of breath Subjective: Doing well, Demented Physical Examination - Vital Signs Temperature: 97.6 F Blood Pressure: 135/60 Pulse: 77 Respirations: 19 Pulse Ox (%): 95 - Studies Medications List Reviewed: Yes Assessment & Plan Discharge Plan: Other (SNF) Plan to discharge in: 24 Hours Physician Review Additional Text: COVID: Positive CT Chest: COMPARISON: THORAX W WO CONT dated 01/14/2013 TECHNIQUE: CT angiogram of the pulmonary arteries was performed with MIP. All CT scans are performed using dose optimization technique as appropriate and may include automated exposure control or mA/KV adjustment according to patient size. FINDINGS: No evidence of pulmonary thromboembolism. No acute aortic finding demonstrated. The lungs are mildly emphysematous but clear. No significant pericardial or pleural fluid. No concerning bony finding. IMPRESSION: No evidence of pulmonary thromboembolism. Mild COPD. Follow up CXR: COMPARISON: Chest Single View dated 05/03/2021; Chest Pa And Lat (2 Views) dated 05/02/2021; Chest Pa And Lat (2 Views) dated 04/07/2020; Chest Single View dated 12/24/2018; Chest For Pe Angio dated 05/03/2021 FINDINGS: Lines: None. Lungs: No evidence of edema or pneumonia. Pleural: No significant pleural effusions or pneumothorax. Cardiac: The heart size is within normal limits. Atherosclerosis. Bones: No acute fractures. IMPRESSION: No acute cardiopulmonary disease. Venous doppler: COMPARISON: No comparisons TECHNIQUE: Real-time sonographic interrogation of the left and right lower extremity deep venous systems was performed. FINDINGS: Normal compressibility, flow augmentation, phasic flow and spontaneous flow is identified in both the left and right lower extremity deep venous systems. IMPRESSION: No sonographic evidence of left or right lower extremity deep venous thrombosis. Physical Exam: GENERAL: Patient with dementia. Overall stable. Patient able to follow commands VITAL SIGNS: Reviewed HEENT: Neck supple LUNGS: Clear to auscultation. No crackles or wheezes are heard. Patient on room air HEART: Regular rate and rhythm, no appreciable gallops, rubs, murmurs or extra heart sounds ABDOMEN: Soft, nontender, and nondistended. Positive bowel sounds. No hepatosplenomegaly was noted. EXTREMITIES: Without any cyanosis, clubbing, rash, lesions or peripheral edema. NEUROLOGIC: Patient with dementia Impression: COVID-19 positive with Acute Pneumonia COPD UTI with urine culture positive for Klebsiella pneumoniae Dementia Plan: COVID-19 positive with Acute Pneumonia: Patient doing well. Patient remained stable on room air. Continue with prednisone taper. Patient awaiting approval for skilled placement. Case discussed in detail with daughter who has medical power of ip attorney. Advance care directives also addressed. Patient is DNR. COPD: Continue with COPD treatmentBrovana, albuterol and Atrovent. UTI with urine culture positive for Klebsiella pneumoniae: Continue with cefdinir. Patient to be treated for 7 days. Will repeat urine culture for resolution. Dementia: Continue Namenda Code Status: This was readdressed with daughter who has medical power ip attorney. Patient is DNR. DVT prophylaxis: Lovenox Advanced Care Planning-30 minutes: We will pursue skilled placement. Daughter would consider long-term care if this is required in the future. Time Spent Managing Pts Care (In Minutes): 55
[2021-05-09] MEDS: ARFORMOTEROL TARTRATE 15 MCG/2 ML VIAL.NEB NEB SCH ×2 (07:42→20:40)
[2021-05-09] MEDS: predniSONE 20 MG TAB PO SCH (09:08)
[2021-05-09] MEDS: MEMANTINE HCL 10 MG TABLET PO SCH (09:08)
[2021-05-09] MEDS: FAMOTIDINE 20 MG TAB PO SCH (09:08)
[2021-05-09] MEDS: CEFDINIR 300 MG CAP PO SCH ×2 (09:09→20:19)
[2021-05-09] MEDS: ENOXAPARIN 40 MG/0.4 ML SQ SCH (16:05)
--- NOTE | 2021-05-10 05:47 | P.PN ---
Subjective Date of Service: 05/10/21 Chief Complaint: Shortness of breath Subjective: Doing well, Demented Physical Examination - Vital Signs Temperature: 96.8 F Blood Pressure: 141/64 Pulse: 83 Respirations: 19 Pulse Ox (%): 93 - Studies Medications List Reviewed: Yes Assessment & Plan Discharge Plan: Other (intermediate facility) Plan to discharge in: 24 Hours Physician Review Additional Text: COVID: Positive CT Chest: COMPARISON: THORAX W WO CONT dated 01/14/2013 TECHNIQUE: CT angiogram of the pulmonary arteries was performed with MIP. All CT scans are performed using dose optimization technique as appropriate and may include automated exposure control or mA/KV adjustment according to patient size. FINDINGS: No evidence of pulmonary thromboembolism. No acute aortic finding demonstrated. The lungs are mildly emphysematous but clear. No significant pericardial or pleural fluid. No concerning bony finding. IMPRESSION: No evidence of pulmonary thromboembolism. Mild COPD. Follow up CXR: COMPARISON: Chest Single View dated 05/03/2021; Chest Pa And Lat (2 Views) dated 05/02/2021; Chest Pa And Lat (2 Views) dated 04/07/2020; Chest Single View dated 12/24/2018; Chest For Pe Angio dated 05/03/2021 FINDINGS: Lines: None. Lungs: No evidence of edema or pneumonia. Pleural: No significant pleural effusions or pneumothorax. Cardiac: The heart size is within normal limits. Atherosclerosis. Bones: No acute fractures. IMPRESSION: No acute cardiopulmonary disease. Venous doppler: COMPARISON: No comparisons TECHNIQUE: Real-time sonographic interrogation of the left and right lower extremity deep venous systems was performed. FINDINGS: Normal compressibility, flow augmentation, phasic flow and spontaneous flow is identified in both the left and right lower extremity deep venous systems. IMPRESSION: No sonographic evidence of left or right lower extremity deep venou s thrombosis. Physical Exam: GENERAL: Patient with dementia. Overall stable. Patient able to follow commands VITAL SIGNS: Reviewed HEENT: Neck supple LUNGS: Clear to auscultation. No crackles or wheezes are heard. Patient on room air HEART: Regular rate and rhythm, no appreciable gallops, rubs, murmurs or extra heart sounds ABDOMEN: Soft, nontender, and nondistended. Positive bowel sounds. No hepatosplenomegaly was noted. EXTREMITIES: Without any cyanosis, clubbing, rash, lesions or peripheral edema. NEUROLOGIC: Patient with dementia Impression: COVID-19 positive with Acute Pneumonia COPD UTI with urine culture positive for Klebsiella pneumoniae Dementia Plan: COVID-19 positive with Acute Pneumonia: Patient doing well. Patient remained stable on room air. Continue with prednisone taper. Patient awaiting approval for skilled placement. Case discussed in detail with daughter who has medical power of insurance attorney. Advance care directives also addressed. Patient is DNR. COPD: Continue with COPD treatmentBrovana, albuterol and Atrovent. UTI with urine culture positive for Klebsiella pneumoniae: Continue with cefdinir. Patient to be treated for 7 days. Will repeat urine culture for resolution. Dementia: Continue Namenda Code Status: This was readdressed with daughter who has medical power insurance attorney. Patient is DNR. DVT prophylaxis: Lovenox Advanced Care Planning-30 minutes: Continue to pursue skilled placement. Await approval. Daughter would consider long-term care if this is required in the future. Time Spent Managing Pts Care (In Minutes): 55
[2021-05-10] MEDS: ARFORMOTEROL TARTRATE 15 MCG/2 ML VIAL.NEB NEB SCH ×2 (08:00→20:00)
[2021-05-10] MEDS: CEFDINIR 300 MG CAP PO SCH ×2 (09:07→20:18)
[2021-05-10] MEDS: MEMANTINE HCL 10 MG TABLET PO SCH (09:07)
[2021-05-10] MEDS: predniSONE 20 MG TAB PO SCH (09:07)
[2021-05-10] MEDS: FAMOTIDINE 20 MG TAB PO SCH (09:07)
[2021-05-10] MEDS: ENOXAPARIN 40 MG/0.4 ML SQ SCH (17:30)
--- NOTE | 2021-05-11 06:05 | P.PN ---
Subjective Date of Service: 05/11/21 Chief Complaint: Shortness of breath Subjective: Improving, Doing well, Demented Physical Examination - Vital Signs Temperature: 97.1 F Blood Pressure: 114/68 Pulse: 68 Respirations: 19 Pulse Ox (%): 91 - Studies Medications List Reviewed: Yes Assessment & Plan Discharge Plan: Other (Skilled placement) Plan to discharge in: Greater than 2 days Physician Review Additional Text: COVID: Positive CT Chest: COMPARISON: THORAX W WO CONT dated 01/14/2013 TECHNIQUE: CT angiogram of the pulmonary arteries was performed with MIP. All CT scans are performed using dose optimization technique as appropriate and may include automated exposure control or mA/KV adjustment according to patient size. FINDINGS: No evidence of pulmonary thromboembolism. No acute aortic finding demonstrated. The lungs are mildly emphysematous but clear. No significant pericardial or pleural fluid. No concerning bony finding. IMPRESSION: No evidence of pulmonary thromboembolism. Mild COPD. Follow up CXR: COMPARISON: Chest Single View dated 05/03/2021; Chest Pa And Lat (2 Views) dated 05/02/2021; Chest Pa And Lat (2 Views) dated 04/07/2020; Chest Single View dated 12/24/2018; Chest For Pe Angio dated 05/03/2021 FINDINGS: Lines: None. Lungs: No evidence of edema or pneumonia. Pleural: No significant pleural effusions or pneumothorax. Cardiac: The heart size is within normal limits. Atherosclerosis. Bones: No acute fractures. IMPRESSION: No acute cardiopulmonary disease. Venous doppler: COMPARISON: No comparisons TECHNIQUE: Real-time sonographic interrogation of the left and right lower extremity deep venous systems was performed. FINDINGS: Normal compressibility, flow augmentation, phasic flow and spontaneous flow is identified in both the left and right lower extremity deep venous systems. IMPRESSION: No sonographic evidence of left or right lower extremity deep venous thrombosis. Physical Exam: GENERAL: Patient with dementia. Overall stable. Patient able to follow commands VITAL SIGNS: Reviewed HEENT: Neck supple LUNGS: Clear to auscultation. No crackles or wheezes are heard. Patient on room air HEART: Regular rate and rhythm, no appreciable gallops, rubs, murmurs or extra heart sounds ABDOMEN: Soft, nontender, and nondistended. Positive bowel sounds. No hepatosplenomegaly was noted. EXTREMITIES: Without any cyanosis, clubbing, rash, lesions or peripheral edema. NEUROLOGIC: Patient with dementia Impression: COVID-19 positive with Acute Pneumonia COPD UTI with urine culture positive for Klebsiella pneumoniae Dementia Plan: COVID-19 positive with Acute Pneumonia: Patient doing well. Patient remained stable on room air. Continue with prednisone taper. Patient awaiting approval for skilled placement. Case discussed in detail with daughter who has medical power of business attorney. Advance care directives also addressed. Patient is DNR. COPD: Continue with COPD treatmentBrovana, albuterol and Atrovent. UTI with urine culture positive for Klebsiella pneumoniae: Continue with cefdinir. Patient to be treated for 7 days. Will repeat urine culture for resolution. Dementia: Continue Namenda Code Status: Awaiting skilled placement approval. Spoke with administrator social welfare. Anticipate approval likely early next week. Time Spent Managing Pts Care (In Minutes): 55
[2021-05-11] MEDS: MEMANTINE HCL 10 MG TABLET PO SCH (08:36)
[2021-05-11] MEDS: FAMOTIDINE 20 MG TAB PO SCH (08:37)
[2021-05-11] MEDS: CEFDINIR 300 MG CAP PO SCH (08:37)
[2021-05-11] MEDS: predniSONE 20 MG TAB PO SCH (08:37)
[2021-05-11] MEDS: IPRATROPIUM BROM 0.5MG/2.5ML NEB PRN ×2 (08:39→19:35)
[2021-05-11] MEDS: ARFORMOTEROL TARTRATE 15 MCG/2 ML VIAL.NEB NEB SCH ×2 (08:39→19:35)
[2021-05-11] MEDS: ENOXAPARIN 40 MG/0.4 ML SQ SCH (16:22)
--- NOTE | 2021-05-11 16:56 | P.DS ---
Admission Date: 05/03/21 Discharge Date: 05/11/21 Primary Care Provider: unknown Disposition: TRANSFER TO SNF - MEDICAL Discharge Condition: GOOD Reason for Admission: Shortness of breath Consultations: none Procedures: COVID: Positive CT Chest: COMPARISON: THORAX W WO CONT dated 01/14/2013 TECHNIQUE: CT angiogram of the pulmonary arteries was performed with MIP. All CT scans are performed using dose optimization technique as appropriate and may include automated exposure control or mA/KV adjustment according to patient size. FINDINGS: No evidence of pulmonary thromboembolism. No acute aortic finding demonstrated. The lungs are mildly emphysematous but clear. No significant pericardial or pleural fluid. No concerning bony finding. IMPRESSION: No evidence of pulmonary thromboembolism. Mild COPD. Follow up CXR: COMPARISON: Chest Single View dated 05/03/2021; Chest Pa And Lat (2 Views) dated 05/02/2021; Chest Pa And Lat (2 Views) dated 04/07/2020; Chest Single View dated 12/24/2018; Chest For Pe Angio dated 05/03/2021 FINDINGS: Lines: None. Lungs: No evidence of edema or pneumonia. Pleural: No significant pleural effusions or pneumothorax. Cardiac: The heart size is within normal limits. Atherosclerosis. Bones: No acute fractures. IMPRESSION: No acute cardiopulmonary disease. Venous doppler: COMPARISON: No comparisons TECHNIQUE: Real-time sonographic interrogation of the left and right lower extremity deep venous systems was performed. FINDINGS: Normal compressibility, flow augmentation, phasic flow and spontaneous flow is identified in both the left and right lower extremity deep venous systems. IMPRESSION: No sonographic evidence of left or right lower extremity deep venous thrombosis. Medical Problem List: COVID-19 positive with Acute Pneumonia COPD UTI with urine culture positive for Klebsiella pneumoniae Dementia Brief History of Present Illness: 89-year-old gentleman who came to the hospital with difficulty breathing. Patient had a history of COVID-19 pneumonia. Patient was diagnose yesterday in the emergency room. Patient clinically has been doing worse so patient came to the hospital for further evaluation. Patient has some generalized weakness and nonproductive cough. Patient clinical symptoms are worsening. Patient be admitted for further evaluation. Patient's CT scan was negative. Patient venous Doppler were negative. Hospital Course: Patient presented with increased cough, shortness of breath secondary to COVID pneumonia complicated with COPD and UTI. Patient was admitted for treatment. Patient with underlying dementia. Patient has done well. Patient on room air. Patient received IV steroid with improvement. Patient was evaluated by physical therapy. Family desired skilled placement for the patient. Patient has been approved. At discharge patient will continue with cefdinir for 2 more days to complete UTI treatment. Urine culture obtained to monitor resolution. At discharge the patient may continue with COPD treatmentBrovana 1 unit dose twice daily and albuterol 1 unit dose 3 times a day as needed for shortness of breath. Patient on room air. Patient with dementia. Overall stable. Patient may continue with Namenda 5 mg daily. Advance care directives addressed in detail. Patient is DO NOT RESUSCITATE. Patient may require long-term care at discharge. Other consideration would be hospice. Vital Signs/Physical Exam: Temp Pulse Resp BP Pulse Ox 97.4 F 75 17 107/60 95 05/11/21 16:00 05/11/21 16:00 05/11/21 16:00 05/11/21 16:00 05/11/21 16:00 General: Alert, Demented HEENT: Atraumatic Neck: Supple Respiratory: Clear to auscultation bilaterally, Normal air movement Cardiovascular: Normal pulses, Regular rate/rhythm Gastrointestinal: Normal bowel sounds, No tenderness, No masses, No rebound, No guarding Musculoskeletal: No erythema, No tenderness, No warmth Integumentary: No tenderness/swelling, No erythema, No warmth, No cyanosis Neurological: Normal speech, Normal strength at 5/5 x4 extr, Normal tone, Dementia Laboratory Data at Discharge: WBC 11.50 K/uL (4.3-10.9) H 05/07/21 05:19 Hgb 14.2 g/dL (13.6-17.9) 05/07/21 05:19 Hct 43.5 % (39.6-49.0) 05/07/21 05:19 Plt Count 252 K/uL (152-406) 05/07/21 05:19 PT 11.4 SECONDS (9.5-12.5) 05/03/21 08:50 INR 0.99 05/03/21 08:50 Sodium 137 mmol/L (136-145) 05/07/21 05:19 Potassium 4.1 mmol/L (3.5-5.1) 05/07/21 05:19 BUN 32 mg/dL (7-18) H 05/07/21 05:19 Creatinine 0.83 mg/dL (0.55-1.3) 05/07/21 05:19 Glucose 110 mg/dL (74-106) H 05/07/21 05:19 Magnesium 2.6 mg/dL (1.8-2.4) H 05/07/21 05:19 Total Bilirubin 0.3 mg/dL (0.2-1.0) 05/06/21 05:59 AST 21 U/L (15-37) 05/06/21 05:59 ALT 17 U/L (12-78) 05/06/21 05:59 Alkaline Phosphatase 67 U/L (45-117) 05/06/21 05:59 Triglycerides 51 mg/dL (<150) 05/04/21 04:49 Cholesterol 171 mg/dL (<200) 05/04/21 04:49 HDL Cholesterol 53 mg/dL (40-60) 05/04/21 04:49 Cholesterol/HDL Ratio 3.23 05/04/21 04:49 Home Medications: Memantine HCl [Namenda*] 5 mg PO DAILY 05/03/21 Albuterol Neb [Proventil 0.083% Neb Soln] 3 ml NEB TID PRN #90 amp 05/11/21 Arformoterol Tartrate [Brovana] 2 ml NEB BIDRESP #60 vial.neb 05/11/21 Cefdinir [Omnicef] 300 mg PO BID #4 capsule 05/11/21 Folic Acid 1 mg PO DAILY #90 tablet 05/11/21 Thiamine HCl 100 mg PO DAILY #90 tablet 05/11/21 predniSONE [Deltasone*] 10 mg PO SEECOM #21 tab 05/11/21 New Medications: Arformoterol Tartrate [Brovana] 2 ml NEB BIDRESP #60 vial.neb predniSONE [Deltasone*] 10 mg PO SEECOM #21 tab Folic Acid 1 mg PO DAILY #90 tablet Cefdinir [Omnicef] 300 mg PO BID #4 capsule Albuterol Neb [Proventil 0.083% Neb Soln] 3 ml NEB TID PRN #90 amp PRN Reason: Shortness Of Breath Thiamine HCl 100 mg PO DAILY #90 tablet Followup: NONE,NONE [Primary Care Provider] -
--- NOTE | 2021-05-12 05:45 | P.PN ---
Subjective Date of Service: 05/12/21 Chief Complaint: Shortness of breath Subjective: Doing well, Demented Physical Examination - Vital Signs Temperature: 97.7 F Blood Pressure: 121/56 Pulse: 78 Respirations: 19 Pulse Ox (%): 92 - Studies Medications List Reviewed: Yes Assessment & Plan Discharge Plan: Other (retirement facility) Plan to discharge in: 24 Hours Physician Review Additional Text: COVID: Positive CT Chest: COMPARISON: THORAX W WO CONT dated 01/14/2013 TECHNIQUE: CT angiogram of the pulmonary arteries was performed with MIP. All CT scans are performed using dose optimization technique as appropriate and may include automated exposure control or mA/KV adjustment according to patient size. FINDINGS: No evidence of pulmonary thromboembolism. No acute aortic finding demonstrated. The lungs are mildly emphysematous but clear. No significant pericardial or pleural fluid. No concerning bony finding. IMPRESSION: No evidence of pulmonary thromboembolism. Mild COPD. Follow up CXR: COMPARISON: Chest Single View dated 05/03/2021; Chest Pa And Lat (2 Views) dated 05/02/2021; Chest Pa And Lat (2 Views) dated 04/07/2020; Chest Single View dated 12/24/2018; Chest For Pe Angio dated 05/03/2021 FINDINGS: Lines: None. Lungs: No evidence of edema or pneumonia. Pleural: No significant pleural effusions or pneumothorax. Cardiac: The heart size is within normal limits. Atherosclerosis. Bones: No acute fractures. IMPRESSION: No acute cardiopulmonary disease. Venous doppler: COMPARISON: No comparisons TECHNIQUE: Real-time sonographic interrogation of the left and right lower extremity deep venous systems was performed. FINDINGS: Normal compressibility, flow augmentation, phasic flow and spontaneous flow is identified in both the left and right lower extremity deep venous systems. IMPRESSION: No sonographic evidence of left or right lower extremity deep venou s thrombosis. Physical Exam: GENERAL: Patient with dementia. Overall stable. Patient able to follow commands VITAL SIGNS: Reviewed HEENT: Neck supple LUNGS: Clear to auscultation. No crackles or wheezes are heard. Patient on room air HEART: Regular rate and rhythm, no appreciable gallops, rubs, murmurs or extra heart sounds ABDOMEN: Soft, nontender, and nondistended. Positive bowel sounds. No hepatosplenomegaly was noted. EXTREMITIES: Without any cyanosis, clubbing, rash, lesions or peripheral edema. NEUROLOGIC: Patient with dementia Impression: COVID-19 positive with Acute Pneumonia COPD UTI with urine culture positive for Klebsiella pneumoniae Dementia Plan: COVID-19 positive with Acute Pneumonia: Patient doing well. Patient remains on room air. Will taper steroid to 10 mg daily. Continue for 7 more days. Awaiting approval for skilled placement. This will likely occur early next week. COPD: Continue with COPD treatmentBrovana, albuterol and Atrovent. Patient on room air. UTI with urine culture positive for Klebsiella pneumoniae: Patient has completed treatment for 7 days. Recheck urine for resolution. Dementia: Continue Namenda. Add folic acid and thiamine. Code Status: Awaiting skilled placement approval. Spoke with social service liaison. Anticipate approval likely early next week. Time Spent Managing Pts Care (In Minutes): 55
[2021-05-12] MEDS: MEMANTINE HCL 10 MG TABLET PO SCH (07:54)
[2021-05-12] MEDS: FAMOTIDINE 20 MG TAB PO SCH (07:55)
[2021-05-12] MEDS: predniSONE 20 MG TAB PO SCH (07:55)
[2021-05-12] MEDS: ARFORMOTEROL TARTRATE 15 MCG/2 ML VIAL.NEB NEB SCH ×2 (08:44→20:05)
[2021-05-12] MEDS: IPRATROPIUM BROM 0.5MG/2.5ML NEB PRN (08:44)
[2021-05-12] MEDS: ENOXAPARIN 40 MG/0.4 ML SQ SCH (16:04)
--- NOTE | 2021-05-13 05:59 | P.PN ---
Subjective Date of Service: 05/13/21 Chief Complaint: Shortness of breath Subjective: Doing well, Demented Physical Examination - Vital Signs Temperature: 96.8 F Blood Pressure: 122/58 Pulse: 69 Respirations: 19 Pulse Ox (%): 95 - Studies Medications List Reviewed: Yes Assessment & Plan Discharge Plan: Other (senior living facility) Plan to discharge in: 24 Hours Physician Review Additional Text: COVID: Positive CT Chest: COMPARISON: THORAX W WO CONT dated 01/14/2013 TECHNIQUE: CT angiogram of the pulmonary arteries was performed with MIP. All CT scans are performed using dose optimization technique as appropriate and may include automated exposure control or mA/KV adjustment according to patient size. FINDINGS: No evidence of pulmonary thromboembolism. No acute aortic finding demonstrated. The lungs are mildly emphysematous but clear. No significant pericardial or pleural fluid. No concerning bony finding. IMPRESSION: No evidence of pulmonary thromboembolism. Mild COPD. Follow up CXR: COMPARISON: Chest Single View dated 05/03/2021; Chest Pa And Lat (2 Views) dated 05/02/2021; Chest Pa And Lat (2 Views) dated 04/07/2020; Chest Single View dated 12/24/2018; Chest For Pe Angio dated 05/03/2021 FINDINGS: Lines: None. Lungs: No evidence of edema or pneumonia. Pleural: No significant pleural effusions or pneumothorax. Cardiac: The heart size is within normal limits. Atherosclerosis. Bones: No acute fractures. IMPRESSION: No acute cardiopulmonary disease. Venous doppler: COMPARISON: No comparisons TECHNIQUE: Real-time sonographic interrogation of the left and right lower extremity deep venous systems was performed. FINDINGS: Normal compressibility, flow augmentation, phasic flow and spontaneous flow is identified in both the left and right lower extremity deep venous systems. IMPRESSION: No sonographic evidence of left or right lower extremity deep venou s thrombosis. Physical Exam: GENERAL: Patient with dementia. Overall stable. Patient able to follow commands VITAL SIGNS: Reviewed HEENT: Neck supple LUNGS: Clear to auscultation. No crackles or wheezes are heard. Patient on room air HEART: Regular rate and rhythm, no appreciable gallops, rubs, murmurs or extra heart sounds ABDOMEN: Soft, nontender, and nondistended. Positive bowel sounds. No hepatosplenomegaly was noted. EXTREMITIES: Without any cyanosis, clubbing, rash, lesions or peripheral edema. NEUROLOGIC: Patient with dementia Impression: COVID-19 positive with Acute Pneumonia COPD UTI with urine culture positive for Klebsiella pneumoniae Dementia Plan: COVID-19 positive with Acute Pneumonia: Patient doing well. No complaints noted. Patient remains on room air. Continue to taper off prednisone. Prednisone can be tapered off over the next 7 days. Awaiting approval for skilled placement. Anticipate approval likely in the next 24 to 48 hours. Case discussed with social media director on Friday. I will turn the service over to the hospitalist team tomorrow. I will go plan of care with him. COPD: Continue with COPD treatmentBrovana, albuterol and Atrovent. Patient on room air. UTI with urine culture positive for Klebsiella pneumoniae: Patient has completed treatment for 7 days. Recheck urine for resolutionpending. Dementia: Continue Namenda. Add folic acid and thiamine. Code Status: Awaiting skilled placement approval. Spoke with social media director. Anticipate approval to skilled facility likely in the next 24 to 48 hours. Time Spent Managing Pts Care (In Minutes): 55
[2021-05-13] MEDS: FOLIC ACID 1 MG TABLET PO SCH (07:45)
[2021-05-13] MEDS: MEMANTINE HCL 10 MG TABLET PO SCH (07:45)
[2021-05-13] MEDS: FAMOTIDINE 20 MG TAB PO SCH (07:45)
[2021-05-13] MEDS: predniSONE 10 MG TAB PO SCH (07:46)
[2021-05-13] MEDS: THIAMINE HCL 100 MG TABLET PO SCH (07:46)
[2021-05-13] MEDS: IPRATROPIUM BROM 0.5MG/2.5ML NEB PRN (09:11)
[2021-05-13] MEDS: ARFORMOTEROL TARTRATE 15 MCG/2 ML VIAL.NEB NEB SCH ×2 (09:11→19:40)
[2021-05-13] MEDS: ENOXAPARIN 40 MG/0.4 ML SQ SCH (16:35)
[2021-05-14] MEDS: ARFORMOTEROL TARTRATE 15 MCG/2 ML VIAL.NEB NEB SCH ×2 (08:00→19:20)
[2021-05-14] MEDS: MEMANTINE HCL 10 MG TABLET PO SCH (09:02)
[2021-05-14] MEDS: predniSONE 10 MG TAB PO SCH (09:02)
[2021-05-14] MEDS: FOLIC ACID 1 MG TABLET PO SCH (09:02)
[2021-05-14] MEDS: THIAMINE HCL 100 MG TABLET PO SCH (09:02)
[2021-05-14] MEDS: FAMOTIDINE 20 MG TAB PO SCH (09:02)
[2021-05-14] MEDS: ENOXAPARIN 40 MG/0.4 ML SQ SCH (16:39)
--- NOTE | 2021-05-14 19:09 | P.PN ---
Date of Service: 05/14/21 Subjective Patient is doing well. Patient feels better. Awaiting for half-way facility placement. Review of Systems 10-point ROS is otherwise unremarkable Physical Examination - Vital Signs Reviewed - Physical Exam General: Alert, In no apparent distress, demented, oriented to person and place but not to time Respiratory: Clear bilaterally Cardiovascular: Regular rate/rhythm, Normal S1 S2, No murmurs Gastrointestinal: Normal bowel sounds, Soft and benign, Non-distended, No tenderness Musculoskeletal: No clubbing, No swelling, No tenderness Neurological: No focal deficits - Studies Medications List Reviewed: Yes Assessment & Plan - Problems (Diagnosis) (1) Pneumonia due to COVID-19 virus Current Visit: Yes Status: Acute (2) COPD with acute exacerbation Current Visit: Yes Status: Acute (3) Alzheimer's dementia Current Visit: Yes Status: Acute - Plan Continue with plan of care as mentioned below: 1. Continue with tapering oral steroids 2. Monitor labs 3. CXR in AM 4. O2 per protocol 5. Continue with neb treatments 6. Continue with medications for dementia 7. nursing home facility placement per family recommendation; also DNR 8. Physical therapy 9. GI and DVT prophylaxis
[2021-05-15 06:24] LABS: Absolute Lymphocytes (CBC) 2.8 K/uL (0.7-4.9); Hematocrit 45.5 % (39.6-49.0); Lymphocytes % 35.9 % (15.3-44.8); MPV 7.8 fL (7.6-11.3)
[2021-05-15 06:34] LABS: BUN Blood Urea Nitrogen 20 mg/dL (7-18); Bicarbonate 29 mmol/L (21-32); Glucose Level 79 mg/dL (74-106); Magnesium 2.5 mg/dL (1.8-2.4); Potassium 3.6 mmol/L (3.5-5.1); Sodium Level 135 mmol/L (136-145)
[2021-05-15] MEDS: ARFORMOTEROL TARTRATE 15 MCG/2 ML VIAL.NEB NEB SCH ×2 (08:40→20:25)
[2021-05-15] MEDS: MEMANTINE HCL 10 MG TABLET PO SCH (10:51)
[2021-05-15] MEDS: predniSONE 10 MG TAB PO SCH (10:51)
[2021-05-15] MEDS: FOLIC ACID 1 MG TABLET PO SCH (10:52)
[2021-05-15] MEDS: FAMOTIDINE 20 MG TAB PO SCH (10:52)
[2021-05-15] MEDS: THIAMINE HCL 100 MG TABLET PO SCH (10:52)
[2021-05-15] MEDS: ENOXAPARIN 40 MG/0.4 ML SQ SCH (17:06)
[2021-05-15] MEDS: IPRATROPIUM BROM 0.5MG/2.5ML NEB PRN (20:25)
[2021-05-16] MEDS: ARFORMOTEROL TARTRATE 15 MCG/2 ML VIAL.NEB NEB SCH ×2 (08:13→20:00)
[2021-05-16] MEDS: predniSONE 10 MG TAB PO SCH (10:00)
[2021-05-16] MEDS: FAMOTIDINE 20 MG TAB PO SCH (10:00)
[2021-05-16] MEDS: FOLIC ACID 1 MG TABLET PO SCH (10:00)
[2021-05-16] MEDS: THIAMINE HCL 100 MG TABLET PO SCH (10:00)
[2021-05-16] MEDS: MEMANTINE HCL 10 MG TABLET PO SCH (10:01)
[2021-05-16] MEDS: ENOXAPARIN 40 MG/0.4 ML SQ SCH (16:28)
[2021-05-17] MEDS: FOLIC ACID 1 MG TABLET PO SCH (09:00)
[2021-05-17] MEDS: ARFORMOTEROL TARTRATE 15 MCG/2 ML VIAL.NEB NEB SCH ×2 (09:08→20:00)
[2021-05-17] MEDS: FAMOTIDINE 20 MG TAB PO SCH (09:51)
[2021-05-17] MEDS: THIAMINE HCL 100 MG TABLET PO SCH (09:51)
[2021-05-17] MEDS: predniSONE 10 MG TAB PO SCH (09:52)
[2021-05-17] MEDS: MEMANTINE HCL 10 MG TABLET PO SCH (09:55)
--- NOTE | 2021-05-17 11:03 | P.PN ---
Date of Service: 05/15/21 Subjective Patient is doing well. Awaiting for placement. Review of Systems 10-point ROS is otherwise unremarkable Physical Examination - Vital Signs Reviewed - Physical Exam General: Alert, In no apparent distress, demented, oriented to person and place but not to time Respiratory: Clear bilaterally Cardiovascular: Regular rate/rhythm, Normal S1 S2, No murmurs Gastrointestinal: Normal bowel sounds, Soft and benign, Non-distended, No tenderness Musculoskeletal: No clubbing, No swelling, No tenderness Neurological: No focal deficits - Studies Medications List Reviewed: Yes Assessment & Plan - Problems (Diagnosis) (1) Pneumonia due to COVID-19 virus Current Visit: Yes Status: Acute (2) COPD with acute exacerbation Current Visit: Yes Status: Acute (3) Alzheimer's dementia Current Visit: Yes Status: Acute - Plan Continue with plan of care as mentioned below: 1. Tapering oral steroids 2. Monitor labs weekly 3. jail facility placement per family recommendation; also DNR 4. Physical therapy 5. GI and DVT prophylaxis
--- NOTE | 2021-05-17 11:06 | P.PN ---
Date of Service: 05/16/21 Subjective Patient is doing well. No new changes; awaiting placement Review of Systems 10-point ROS is otherwise unremarkable Physical Examination - Vital Signs Reviewed - Physical Exam General: Alert, In no apparent distress, demented, oriented to person and place but not to time Respiratory: Clear bilaterally Cardiovascular: Regular rate/rhythm, Normal S1 S2, No murmurs Gastrointestinal: Normal bowel sounds, Soft and benign, Non-distended, No tenderness Musculoskeletal: No clubbing, No swelling, No tenderness Neurological: No focal deficits - Studies Medications List Reviewed: Yes Assessment & Plan - Problems (Diagnosis) (1) Pneumonia due to COVID-19 virus Current Visit: Yes Status: Acute (2) COPD with acute exacerbation Current Visit: Yes Status: Acute (3) Alzheimer's dementia Current Visit: Yes Status: Acute - Plan Continue with plan of care as mentioned below: 1. Continue with tapering oral steroids 2. Awaiting placement 3. Physical therapy 4. GI and DVT prophylaxis
--- NOTE | 2021-05-17 11:06 | P.PN ---
Date of Service: 05/17/21 Subjective Eating well and tolerating diet; participating with therapy. Doing range of motion and trying to get out of bed. Review of Systems 10-point ROS is otherwise unremarkable Physical Examination - Vital Signs Reviewed - Physical Exam General: Alert, In no apparent distress, demented, oriented to person and place but not to time Gastrointestinal: Normal bowel sounds, Soft and benign, Non-distended, No tenderness Musculoskeletal: No clubbing, No swelling, No tenderness Neurological: No focal deficits - Studies Medications List Reviewed: Yes Assessment & Plan - Problems (Diagnosis) (1) Pneumonia due to COVID-19 virus Current Visit: Yes Status: Acute (2) COPD with acute exacerbation Current Visit: Yes Status: Acute (3) Alzheimer's dementia Current Visit: Yes Status: Acute - Plan Continue with plan of care as mentioned below: 1. Continue with tapering oral steroids 2. Awaiting placement 3. Physical therapy 4. GI and DVT prophylaxis
[2021-05-17] MEDS: ACETAMINOPHEN 500 MG TAB PO PRN (13:08)
[2021-05-17] MEDS ORDERED: IPRATROPIUM BROM 0.5MG/2.5ML NEB PRN (14:36)
[2021-05-17] MEDS ORDERED: ALBUTEROL 2.5 MG/3 ML NEB SOL NEB PRN (14:36)
[2021-05-17] MEDS: ENOXAPARIN 40 MG/0.4 ML SQ SCH (16:31)
[2021-05-17 16:57] VITALS: O2SAT 97
[2021-05-18] MEDS: ARFORMOTEROL TARTRATE 15 MCG/2 ML VIAL.NEB NEB SCH (07:58)
[2021-05-18] MEDS ORDERED: predniSONE 5 MG TAB PO SCH (09:00)
[2021-05-18] MEDS: THIAMINE HCL 100 MG TABLET PO SCH (09:02)
[2021-05-18] MEDS: FAMOTIDINE 20 MG TAB PO SCH (09:03)
[2021-05-18] MEDS: MEMANTINE HCL 10 MG TABLET PO SCH (09:03)
[2021-05-18] MEDS: FOLIC ACID 1 MG TABLET PO SCH (09:04)
[2021-05-18 12:36] VITALS: BP 109/57; TEMP 98.1
--- NOTE | 2021-05-21 02:00 | P.DS ---
Discharge Date: 05/18/21 Disposition: TRANSFER TO SNF - MEDICAL Discharge Condition: GOOD Reason for Admission: Shortness of breath - Problems (1) Pneumonia due to COVID-19 virus Status: Acute (2) Chronic obstructive lung disease COPD Status: Chronic (3) Alzheimer's dementia Status: Acute (4) COPD with acute exacerbation Status: Acute Brief History of Present Illness: Patient is a 89-year-old gentleman who came to the hospital with difficulty breathing. Patient was has a history of COVID-19 pneumonia. Patient was diagnose yesterday in the emergency room. Patient clinically has been doing worse so patient came to the hospital for further evaluation. Patient is has some generalized weakness and nonproductive cough. Patient clinical symptoms are worsening. Patient be admitted for further evaluation. Patient's CT scan was negative. Patient venous Doppler were negative. Hospital Course: Patient was placed and is clinically doing well. Patient is stable for discharge. Patient will continue with physical therapy then hopefully patient's strength pills up for he can go home. At this time, [facility] Vital Signs/Physical Exam: Temp Pulse Resp BP Pulse Ox 98.1 F 79 16 109/57 L 97 05/18/21 12:00 05/18/21 12:00 05/18/21 12:00 05/18/21 12:00 05/18/21 12:00 General: Alert, In no apparent distress, Oriented x3 Laboratory Data at Discharge: WBC 7.80 K/uL (4.3-10.9) D 05/15/21 05:34 Hgb 15.3 g/dL (13.6-17.9) 05/15/21 05:34 Hct 45.5 % (39.6-49.0) 05/15/21 05:34 Plt Count 333 K/uL (152-406) D 05/15/21 05:34 PT 11.4 SECONDS (9.5-12.5) 05/03/21 08:50 INR 0.99 05/03/21 08:50 Sodium 135 mmol/L (136-145) L 05/15/21 05:54 Potassium 3.6 mmol/L (3.5-5.1) 05/15/21 05:54 BUN 20 mg/dL (7-18) H 05/15/21 05:54 Creatinine 0.71 mg/dL (0.55-1.3) 05/15/21 05:54 Glucose 79 mg/dL (74-106) 05/15/21 05:54 Magnesium 2.5 mg/dL (1.8-2.4) H 05/15/21 05:54 Total Bilirubin 0.3 mg/dL (0.2-1.0) 05/06/21 05:59 AST 21 U/L (15-37) 05/06/21 05:59 ALT 17 U/L (12-78) 05/06/21 05:59 Alkaline Phosphatase 67 U/L (45-117) 05/06/21 05:59 Triglycerides 51 mg/dL (<150) 05/04/21 04:49 Cholesterol 171 mg/dL (<200) 05/04/21 04:49 HDL Cholesterol 53 mg/dL (40-60) 05/04/21 04:49 Cholesterol/HDL Ratio 3.23 05/04/21 04:49 Home Medications: Memantine HCl [Namenda*] 5 mg PO DAILY 05/03/21 Albuterol Neb [Proventil 0.083% Neb Soln] 3 ml NEB TID PRN #90 amp 05/11/21 Arformoterol Tartrate [Brovana] 2 ml NEB BIDRESP #60 vial.neb 05/11/21 Cefdinir [Omnicef] 300 mg PO BID #4 capsule 05/11/21 Folic Acid 1 mg PO DAILY #90 tablet 05/11/21 Thiamine HCl 100 mg PO DAILY #90 tablet 05/11/21 predniSONE [Prednisone*] 5 mg PO DAILY #5 tab 05/18/21 New Medications: Arformoterol Tartrate [Brovana] 2 ml NEB BIDRESP #60 vial.neb Folic Acid 1 mg PO DAILY #90 tablet Cefdinir [Omnicef] 300 mg PO BID #4 capsule predniSONE [Prednisone*] 5 mg PO DAILY #5 tab Albuterol Neb [Proventil 0.083% Neb Soln] 3 ml NEB TID PRN #90 amp PRN Reason: Shortness Of Breath Thiamine HCl 100 mg PO DAILY #90 tablet Physician Discharge Instructions: -OK TO DC IV AND DC HOME -FOLLOW-UP WITH PCP IN 1-2 WEEKS -PLEASE MAKE SURE ALL DIAGNOSTIC STUDIES ARE AVAILABLE AND HAVE BEEN REVIEWED WITH PATIENT PRIOR TO DISCHARGE -RETURN TO THE ER IF symptoms worsens -CALL DR. OLEA AT [phone] IF ANY QUESTIONS REGARDING HOSPITAL STAY -PLEASE CALL THE FLOOR AT [phone] IF ANY MEDICATION OR NURSING QUESTIONS Diet: AHA Activity: Fall precautions Followup: NONE,NONE [Primary Care Provider] - 1-2 Weeks ([facility] to [facility] an appointment ) Time spent managing pt's care (in minutes): 35
== END 2021-05-18 12:45 | DRG 177 ==
LOC: ER 08:00 → ERHOLD 13:29 → 4TH 05-04 21:28
PROVIDERS: ADMIT Hospitalist; ATTEND Hospitalist
DX: U07.1 COVID-19 (principal); J12.82 Pneumonia due to coronavirus disease 2019; N39.0 Urinary tract infection, site not specified; J44.0 Chronic obstructive pulmonary disease with (acute) lower respiratory infection; J44.1 Chronic obstructive pulmonary disease with (acute) exacerbation; G30.9 Alzheimer's disease, unspecified; F02.80 Dementia in other diseases classified elsewhere, unspecified severity, without behavioral disturbance, psychotic disturbance, mood disturbance, and anxiety; E78.5 Hyperlipidemia, unspecified; B96.1 Klebsiella pneumoniae [K. pneumoniae] as the cause of diseases classified elsewhere; R09.02 Hypoxemia; Z79.899 Other long term (current) drug therapy; Z90.49 Acquired absence of other specified parts of digestive tract; Z87.891 Personal history of nicotine dependence; Z66 Do not resuscitate; Z79.52 Long term (current) use of systemic steroids; Z23 Encounter for immunization
CPT/HCPCS: 0240U; 36415; 71045; 71046; 71275; 80048; 80053; 80061; 80076; 81003; 82728; 82947; 83605; 83735; 83880; 84145; 84484; 85025; 85379; 85610; 86140; 87070; 87077; 87081; 87086; 87088; 87186; 90471; 93005; 93970; 96365; 96366; 96367; 96372; 96375; 97110; 97112; 97116; 97161; 97530; 99284; J0456; J1650; J2920; J7050; J7512; J7605; Q2035; Q9967